=== PATIENT | female | born 1945 | race Caucasian/White ===

== ENCOUNTER 2017-03-20 06:45 | Day surgery (SDC) | payer MEDICARE ==
[~2017-03-20] VITALS: Ht 162.6 cm; Wt 62.5 kg
--- NOTE | 2017-03-20 06:38 | PCM.HPANE ---
Patient Data Surgeon Admitting Provider: Attending Provider:Odell Baez MD Primary Care Physician:Olga Simmons Other Provider:Victor Hugo Burger Anesthesia Reason for Visit Left Scaphoid Fracture Ht/WT & BMI Height (Feet): 5 Height (Inches): 4 Weight (Kilograms): 63 Body Mass Index 23.00 Allergies Coded Allergies: Sulfa (Sulfonamide Antibiotics) (Verified Adverse Reaction, Severe, ITCHING, REDNESS, 03/17/17) Past Anesthesia History Anesthesia History: Denies:: Abnormal Airway, Anesthesia Reactions, Difficult Intubation, Fam Anesthesia Reaction, Fam Malignant Hypertherm, Malignant Hyperthermia Diabetes History Hx Diabetes?: No MRSA MRSA: No Medications Blood Thinner: Aspirin Last Dose Blood Thinner: Mar 14, 2017 Hypertension Medication: Yes (metoprolol) Home Meds Incl Beta Susie: Yes Reported Medications Acetaminophen/Diphenhydramine (Tylenol Pm Ex-Strength Caplet)500 Mg-25 Mg Tablet1 Each PO HS 10/30/15 Cholecalciferol (Vitamin D3) (Vitamin D3)2,000 Unit Tablet2,000-6,000 Unit PO DAILY 10/30/15 Turmeric Root Extract (Turmeric)500 Mg [id number] Mg PO DAILY 10/31/14 Tamoxifen Citrate 20 Mg Ckugzd60 Mg PO DAILY 08/01/14 Atorvastatin Calcium 40 Mg Kjxsdo83 Mg PO DAILY Ref 0 03/30/14 Cyanocobalamin (Vitamin B-12) (Vitamin B-12)1,000 Mcg Tablet.er1,000 Mcg PO DAILY 03/17/14 Nitroglycerin SL 0.4 Mg Tab.subl0.4 Mg SL Q5MIN 03/17/14 Metoprolol Tartrate 25 Mg Bffjdo93 Mg PO BID 30 Days Ref 0 03/17/14 Ibuprofen 400 Mg Tablet1-2 Tab PO TID PRN For Pain Ref 0 03/17/14 Aspirin 81 Mg Tablet.dr81 Mg PO DAILY #1 BOTTLE Ref 0 03/17/14 Amantadine 100 Mg [id number] Mg PO DAILY 03/17/14 Discontinued Reported Medications Ascorbate Calcium (Vitamin C)500 Mg Fzduzc329-1,500 Mg PO DAILY 10/30/15 History History of ENT Problems?: No HEENT History: Denies:: Abnormal Airway Cataracts Difficult Intubation Dysphagia Glaucoma Hearing Problem Sinus Problem TMJ Denture Type: None Teeth Condition: Within Normal Limits Hx of Heart Problems?: No Cardiovascular History: Positive for:: Cardiac Surgery (Heart cath 12/2013 w/ stent to RCA) Chest Pain (DC 12/2013) Coronary Artery Disease Edema (10 years ago left arm (post L mastectomy/radiation)) Hypertension (HYPERLIPIDEMIA) Valvular Heart Disease ( Tricuspid valve regurg) Denies:: AICD Abdominal Aortic Aneurism Atrial Fibrillation Congestive Heart Failure Heart Murmur Irregular Heartbeat (ECHO 06/17/16 EJ=55-60%) Pacemaker Peripheral Vascular Thrombophlebitis Hx of Respiratory Problem?: No Respiratory History: Positive for:: Chest Surgery (heart cath) Denies:: Use of C-PAP Machine Hx Neurologic Problems?: Yes Neurological History: Positive for:: Multiple Sclerosis (2009) Denies:: Alzheimer's Disease CVA Dementia Dizziness Headaches Parkinson's Disease Seizures TIA Hx of GI Problems?: Yes Other GI Pertinent History: Food has a tendency to clog up the esophagus when eating to the point where she is spitting up excessive gastric juices Hx of Problems?: Yes Genitourinary History: Denies:: Kidney Stones Urinary Tract Infection HX of Peritoneal Dialysis: No Female Hx: Positive for:: Problems with Breasts? (HX LT MASTECTOMY FOR CA/RT BX/MASTECTOMY FOR CA ) Denies:: Currently Skin History: Positive for:: History Skin Disorders? Denies:: Pressure Ulcers Hx Musculoskeletal Problems?: Yes Musculoskeletal History: Positive for:: Back Injury (chronic lumbar pain/ RADICULOPATHY, cervical stenosis) Musculoskeletal Trauma (walking tripped fell without streched arm) Osteoarthritis Denies:: Degenerative Joint Fibromyalgia Joint Replacement Myasthenia Gravis Rheumatoid Arthritis Systemic Lupus Hx of Psycho/Social Problems?: No Hx Surgeries?: Yes (hysterectomy, cathlab (stent to RCA), L mastectomy, perferated Peptic ulcer) Hx Any Other Health Problems?: Yes Other History: Positive for:: Cancer (Breast - Lt mastectomy, current Rt breast Ca) Hospitalization (CARDIAC 2013) Denies:: Endocrine Disease (C/OF HEAT INTOLERANCE) Thyroid Disease History Blood Transfusions: Positive for:: Accept Blood Products? Denies:: Blood Transfusions Hx Diabetes: No Hx Alcohol Use: YesAlcoholic Drinks Per Day: one glass on a wine or mixed drink once a weekHx Substance Use: No Smoking Status: Unknown if Ever Smoker Have You Smoked inLast 12 mo: No Stop/Bang S-Snoring: Do You Snore Loudly: No T-Tired: feel tired, fatigued: No O-Obsered: Observed not breath: No P-Blood Pressure: treated: Yes B- Body Mass Index > 35 kg/m2: No A- Age over 50: Yes N- Neck Large Circumference: No G- Gender Male: No JASMINA Total Score: 2 JASMINA Risk Assessment: Low Risk, <3 Yes Risk Assessment Category Category 1A: Patient has history of documented sleep apnea, and HAS NOT received any narcotic, sedative or anesthesia administration during this stay. Category 1B: Patient has history of documented sleep apnea, and HAS received any narcotic , sedative or anesthesia administration during this stay Category 2: Patient has SUSPECTED Obstructive Sleep Apnea, and HAS received any narcotic , sedative or anesthesia administration during this stay. Category 3: Patient has SUSPECTED Obstructive Sleep Apnea and HAS NOT received narcotic, sedative or anesthesia administration during this stay. Category 4: Outpatient in Procedural Areas with known sleep apnea or who screen positive for High Risk via the STOP/BANG questionnaire. Exam Exam General Appearance: Alert, Oriented X3, Cooperative, No Acute Distress HEENT/AIRWAY: MP 2 Lungs: Clear to Auscultation, Normal Air Movement Heart: Exam Unremarkable, Regular Rate/Rhythm, No Murmurs/Rubs/Gallops Plan Impression Patient chart reviewed, patient interviewed and anesthestic plan with risks, benefits, and alternatives discussed, and informed consent obtained. NPO per Anesth. Guidelines: Yes ASA Physical Status: ASA2 Mod Systemic Disease Anesthetic Plan: GA Bene/Risks/Altern/Consents: Yes HP Complete Prior to Induction: Yes Other L ARM lymphedema. not on right. block for post op pain mentioned and discussed as inappropriate considering axillary sourced lymphedema Darian Huntley MD Mar 20, 2017 06:38
[~2017-03-20 06:45] MED LIST: ACET-2605 PO; AMN100C PO; ASCO-294 PO; ASPI-973 PO; ATOR40TA69 PO; CHOL200025 PO; CYAN10009 PO; IBUP400T22 PO; Lactated Ringer's 1,000 ML IV SCH; METO25TA6 PO; NITR0.4T6 SL; TAMO20TA4 PO; TURM500C7 PO
[2017-03-20] MEDS ORDERED: Ondansetron 2 mg/mL 2 mL Inj ONE (06:46)
[2017-03-20] MEDS ORDERED: Propofol 10,000 mCg/mL 20 mL Inj ONE (06:46)
[2017-03-20] MEDS ORDERED: Dexamethasone 4 mg/mL Inj ONE (06:46)
[2017-03-20] MEDS ORDERED: fentaNYL-PF 50 mCg/mL 2 mL Inj ONE (06:46)
[2017-03-20 07:11] VITALS: BP 154/71; PULSE 101; RESP 16; O2SAT 97
[2017-03-20] MEDS: Lactated Ringer's 1,000 ML IV SCH ×2 (07:33→09:10)
[2017-03-20] MEDS ORDERED: CeFAZolin 2 Gm/50 mL D5W Duplex Bag IV ONE (08:35)
[2017-03-20] MEDS ORDERED: CeFAZolin Inj 2 GM in IV Premix 1 EACH IV SCH (08:40)
[2017-03-20] MEDS ORDERED: Bupivacaine-MPF 0.5% 30 mL Inj INFILTRATE ONE (09:56)
[2017-03-20 10:46] VITALS: BP 154/70; PULSE 75; RESP 14; O2SAT 100
[2017-03-20 10:55] VITALS: BP 150/70; PULSE 75; RESP 16; O2SAT 100
[2017-03-20] MEDS ORDERED: oxyCODONE-Acetamin 5-325 mg Tablet PO PRN (11:00)
[2017-03-20 11:05] VITALS: BP 146/75; PULSE 75; RESP 16; O2SAT 99
[2017-03-20 11:41] VITALS: BP 161/75; PULSE 78; RESP 16; O2SAT 88
--- NOTE | 2017-03-20 11:43 | PCM.ANEP1 ---
Post Anesthesia PACU Phase 1 Assessment Vital Signs Vital Signs Date Time Temp Pulse Resp B/P Pulse Ox O2 Delivery O2 Flow Rate FiO2 03/20/17 11:41 36.1 78 16 161/75 88 Room Air 03/20/17 11:05 75 16 146/75 99 Room Air 03/20/17 10:55 75 16 150/70 100 Room Air 03/20/17 10:46 36.5 75 14 154/70 100 Simple Mask 10 03/20/17 07:11 36.3 101 16 154/71 97 Room Air Anesthetic Administered: GA Level of Alertness: Awake, talking TEMPLETON's with Equal Strength: Yes Pain: No Nausea or Vomiting: No CV Function & Hydration Stable: Yes Airway Device: Oxygen Delivery: Simple Mask Lungs: Clear to Auscultation, Normal Air Movement PACU Phase 2 Assessment Complications: No Follow up Care: No Patient Instructions Provided: N/A Darian Huntley MD Mar 20, 2017 11:43
[2017-03-20 11:51] VITALS: BP 161/75; PULSE 81; RESP 16; O2SAT 96
--- NOTE | 2017-03-20 13:52 | DRSVH ---
PROCEDURE: X-RAY LEFT WRIST COMPLETE, MINIMUM THREE VIEWS ([id number]) INDICATIONS: post op ORIF scaphoid TECHNIQUE: 3 views of the wrist were acquired. COMPARISON: [facility], CR, XR WRIST 3VW LT, 02/02/2017, 10:49. [facility] , CR, XR WRIST 3VW LT, 01/13/2017, 12:55. [facility], CR, XR WRIST 3VW LT, 03/18/2017, 10 :21. FINDINGS: Bones: Near anatomic alignment status post ORIF of mid to distal pole scaphoid fracture. Fully threa ded micro screw present traversing the fracture site in expected position. Osteoarthritic changes red emonstrated. Mild osteopenia. Scaphoid view: Not requested. Soft tissues: No suspicious soft tissue calcifications. IMPRESSION: Near-anatomic alignment status post ORIF of mid-distal pole scaphoid fracture. Dictated by: Jm Steele RRA Interpreted: Abby Ward MD on 03/20/2017 at 13:30 Approved by: Abby Ward MD, PhD on 03/20/2017 at 13:49
--- NOTE | 2017-03-21 06:33 | OP ---
[address] [address] OPERATIVE REPORT PATIENT: TRISTAN DUMONT : 1945 MR#: [id number] ADMIT: 03/20/2017 JOB ID: [id number] DATE OF SURGERY: 03/20/2017 PREOPERATIVE DIAGNOSIS(ES): Left scaphoid waist fracture. POSTOPERATIVE DIAGNOSIS(ES): Left scaphoid waist fracture. PROCEDURE: Open reduction and internal fixation, left scaphoid waist fracture (CPT code 47089). SURGEON: Odell Baez MD. ASSISTING: Yanick Rodarte PA-C. Yanick Rodarte PA-C was an interval portion of the procedure, helping for retraction and maintaining reduction. ANESTHESIA: General. ESTIMATED BLOOD LOSS: 2 mL. DRAINS: None. COMPLICATIONS: None. SPONGE AND NEEDLE COUNT: Correct. IMPLANTS UTILIZED: Synthes 2.4 mm cannulated headless compression screw. INDICATIONS: This is a 71-year-old female with history of multiple sclerosis and chronic lymphedema of left upper extremity, with prior history of breast cancer. Fell on January 13, 2017, sustaining a left scaphoid waist fracture. Subsequent x-rays revealed that the fracture was becoming slightly cystic. She did require preoperative medical clearance from which she obtained preoperative medical clearance. We did schedule her for surgery. With all of her multiple medical problems, it was felt that it would be in her best interest to just try and place a cannulated screw along the scaphoid fracture particularly in line with her underlying lymphedema, trying to avoid a larger procedure. The fracture alignment was amenable to cannulated screw fixation. DESCRIPTION OF PROCEDURE: Under appropriate general anesthetic, a well-padded tourniquet was applied to the left upper extremity. Left arm was prepped and draped in a sterile fashion. After appropriate time-out was called, the arm was elevated and exsanguinated, and tourniquet inflated to 250 mmHg. Utilizing a 14-gauge Angiocath, the starting point for the guide pin for the scaphoid was made over a volar aspect. The wrist was hyperextended over some rolled towels and the wrist was placed in some ulnar deviation. The distal pole of the scaphoid was identified. A small incision was fashioned over that area. A small amount of bony prominence along the rim of the trapezium was rongeured. A guide pin was then introduced with a tissue protector into the scaphoid. It did require redirection on one occasion. The guide pin was noted to be in adequate position on AP lateral and oblique and scaphoid views. The guide pin was then subsequently measured, and 4 mm were subtracted from the measurement to allow for compression of the fracture and countersinking of the screw. A 20 mm x 2.4 mm headless compression screw was then placed in the scaphoid and documented to be in good position on AP lateral, oblique and scaphoid views. The fracture was compressed and after it was compressed, screwdrivers were changed and the screw was then countersunk. Once the image intensification confirmed adequate position of the screw in AP lateral and oblique views including scaphoid views, the guide pin was removed, and permanent x-rays were taken with a mini C-arm. The wound was infiltrated with some 0.5% plain Marcaine. Tourniquet released. Minimal hemostasis required. A couple of subcutaneous sutures of 4-0 Monocryl were utilized. Skin was reapproximated with interrupted horizontal mattress sutures of 4-0 nylon. Xeroform dry sterile dressing was applied. The patient was placed in a well-padded short-arm thumb spica cast. She was taken to the recovery room in stable condition. Sponge and needle count correct. PLAN: The patient will be followed in the office in two weeks. At that time her sutures may be removed. She does have lymphedema and her wound healing may be slightly slower. At that time she needs to be placed in a thumb spica cast with no significant radial deviation of the wrist but rather the wrist needs to be in a neutral position. The thumb should also be in a somewhat neutral position where she can oppose the thumb to the index finger. I would suggest that she be placed in a full thumb-spica cast not allowing any motion of the thumb initially. I would like to see the patient back in followup two weeks after that. I anticipate she will require cast immobilization until there is obvious healing of the fracture or marked improvement with the fracture in particular with her lymphedema.
== END 2017-03-20 23:59 | disposition home or self-care (01) ==
LOC: SAS 06:45
PROVIDERS: ATTEND Orthopaedic Surgery
DX: S62.025A Nondisplaced fracture of middle third of navicular [scaphoid] bone of left wrist, initial encounter for closed fracture (principal); R26.81 Unsteadiness on feet; I10 Essential (primary) hypertension; I25.10 Atherosclerotic heart disease of native coronary artery without angina pectoris; E78.00 Pure hypercholesterolemia, unspecified; G35 Multiple sclerosis; M81.0 Age-related osteoporosis without current pathological fracture; M54.16 Radiculopathy, lumbar region; I25.2 Old myocardial infarction; W18.09XA Striking against other object with subsequent fall, initial encounter; Y93.9 Activity, unspecified; Y92.9 Unspecified place or not applicable; Y99.8 Other external cause status; Z79.82 Long term (current) use of aspirin; Z90.710 Acquired absence of both cervix and uterus; Z85.828 Personal history of other malignant neoplasm of skin; Z85.3 Personal history of malignant neoplasm of breast; Z91.81 History of falling; Z95.5 Presence of coronary angioplasty implant and graft
CPT/HCPCS: 25628; 73110; C1713; J0690; J1100; J2250; J2405; J2704; J3010; J7120

== ENCOUNTER 2017-05-08 14:44 | Inpatient (IN) | payer MEDICARE ==
[~2017-05-08] VITALS: Ht 162.6 cm; Wt 61.6 kg
[2017-05-08] VITALS (7 sets, daily range): BP systolic 86–125; BP diastolic 45–74; PULSE 84–118; RESP 18–20; O2SAT 96–98
[~2017-05-08 14:44] MED LIST changes: -ASCO-294 PO; -Lactated Ringer's 1,000 ML IV SCH; +NITR0.4T38 SL; -NITR0.4T6 SL
--- NOTE | 2017-05-08 15:02 | ED.REPORT ---
HPI-General Illness Date of Service May 08, 2017 ED Provider: Dr. Waller The pt is a 71 y/o female with a hx of peptic ulcer disease, [place] (on 81mg Aspirin ), multiple sclerosis, HTN, and hyperlipidemia who presents to the ED via EMS complaining of non-radiating, gradually worsening abdominal pain, onset 2 weeks ago. She describes it as a moderate aching swain that is not relieved by any specific factors. It was exacerbated after a cup of coffee. Today, she became lightheaded and nauseous. Her caregiver lowered her to the ground. She did not hit her head and did not lose consciousness. Shortly thereafter, the pt had multiple episodes of coffee ground emesis and was brought to the ED. She also noted some hematochezia 2 days ago but nothing since; although she reports slightly darker stool since. She denies chest pain, shortness of breath, fever, chills, headache,vision changes, constipation, and diarrhea. Nursing Notes Stated Complaint: ABDOMINAL PAIN Chief Complaint: General Complaint Nursing Notes Reviewed: Yes Allergies: Coded Allergies: Sulfa (Sulfonamide Antibiotics) (Verified Adverse Reaction, Severe, ITCHING, REDNESS, 03/17/17) Scheduled Acetaminophen/Diphenhydramine (Tylenol Pm Ex-Strength Caplet) 500 Mg-25 Mg Tablet 1 EACH PO HS Amantadine (Amantadine) 100 Mg Cap 100 MG PO DAILY Ascorbate Calcium (Vitamin C) 500 Mg Tablet 1,500 MG PO DAILY Aspirin (Aspirin) 81 Mg Tablet.dr 81 MG PO DAILY Atorvastatin Calcium (Atorvastatin Calcium) 40 Mg Tablet 40 MG PO DAILY Cholecalciferol (Vitamin D3) (Vitamin D3) 2,000 Unit Tablet 6,000 UNIT PO DAILY Cyanocobalamin (Vitamin B-12) (Vitamin B-12) 1,000 Mcg Tablet 1,000 MCG PO DAILY Metoprolol Tartrate (Metoprolol Tartrate) 25 Mg Tablet 25 MG PO BID Tamoxifen Citrate (Tamoxifen Citrate) 20 Mg Tablet 20 MG PO DAILY Turmeric Root Extract (Turmeric) 500 Mg Capsule 500 MG PO DAILY Scheduled PRN Docusate Calcium (Stool Softener) 240 Mg Capsule 240 MG PO BID PRN PRN For Constipation Ibuprofen (Ibuprofen) 400 Mg Tablet 2 TAB PO BID PRN PRN For Pain Nitroglycerin SL (Nitroglycerin SL) 0.4 Mg Tab.subl 0.4 MG SL Q5MIN PRN PRN For Chest Pain General Time Seen by MD: 15:05 Chief Complaint Abdominal pain Hx Obtained From: Patient Arrived By: Ambulance Sudden in Onset?: Yes Onset Occurred: 2 days ago Symptom Duration: Since onset Location: : Abdomen Quality: Aching Radiation: : Does not radiate Severity: Current: Moderate Severity: Maximum: Moderate Recent Healthcare: No recent doctor visit Past Medical History Past Medical History Notes: 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 Rojas Past Medical History MS Lymphedema Acute perforated peptic ulcer with peritonitis in 1996. Myocardial Infarction Reports: Cancer, Hyperlipidemia, Hypertension Past Surgical History Mastectomy Reports: Hysterectomy Smoking History Unknown if Ever Smoker Social History Alcohol Use: 1-3 per week Drug Use: Denies drug use Ambulatory Status Independent Review of Systems Reports: slightly dark stool Full Review of Systems Constitutional: Denies: Chills, Fever Eyes: Denies: Blurred bilateral Ears / Nose / Throat: Denies: Sore throat Respiratory: Denies: Shortness of breath Cardiovascular: Denies: Chest pain GI: Reports: Abdominal pain, Hematemesis, Hematochezia (resolved), Nausea, Vomiting, Denies: Constipation, Diarrhea Female: Denies: Hematuria Musculoskeletal: Denies: Back pain Hematologic: Denies Bruising Endocrine: Denies: Polyuria Skin: Denies Rash Allergy / Immune: Denies: Itching Neurologic: Denies: Change LOC, Headache, Lightheaded, Vision change Psychiatric: Denies: Change mental status Complete sys rev & neg: except as marked. Physical Exam Nursing note and vitals reviewed. Constitutional: Pale, elderly female sitting up in bed. Not diaphoretic. Head: Normocephalic and atraumatic. Mouth/Throat: Oropharynx is clear and moist. No oropharyngeal exudate. Eyes: EOM are normal. Pupils are equal, round, and reactive to light. Neck: Supple, no tracheal deviation. Cardiovascular: Tachycardic, regular rhythm. Equal and intact distal pulses throughout. Pulmonary/Chest: Effort normal and breath sounds normal. No respiratory distress. Abdominal: Soft. No distension. There is mild abdominal tenderness diffusely without rebound and guarding. Bowel sounds present. Musculoskeletal: Range of motion grossly intact, moving all extremities. No edema or tenderness appreciated. Neurological: AOx3. Grossly nonfocal exam. Strength and sensation intact and equal to bilateral upper and lower extremities. Skin: Warm and dry, though appears pale. Psychiatric: Appropriate mood and affect. Behavior appears normal. Rectal: Hemoccult positive, no gross blood Vital Signs Vital Signs Date Time Temp Pulse Resp B/P Pulse Ox O2 Delivery O2 Flow Rate FiO2 05/08/17 16:36 105 119/52 98 Room Air 05/08/17 15:10 101 18 86/45 96 Room Air 05/08/17 14:51 36.8 118 18 111/66 96 Room Air Initial VS: Reviewed Interpretation & Diagnostics Lab Results Interpretation Result Diagram: 05/09/17 0039 05/08/17 1500 Test 05/08/17 15:00 05/08/17 17:57 White Blood Count 7.8th/mm3 (3.8-10.1) Red Blood Count 2.86mil/mm3 (3.90-5.20) Mean Corpuscular Volume 95.5fL (81-100) Mean Corpuscular Hemoglobin 30.8pg (27.0-35.0) Mean Corpuscular Hemoglobin Concent 32.2% (32.0-37.0) Red Cell Distribution Width 14.2% (12.3-15.4) Platelet Count 229bil/L (150-400) Neutrophils (%) (Auto) 73.0% (40-74) Lymphocytes (%) (Auto) 17.5% (14-46) Monocytes (%) (Auto) 6.9% (4-12) Eosinophils (%) (Auto) 1.9% (0-5) Basophils (%) (Auto) 0.4% (0-3) Prothrombin Time 10.3sec (8.1-12.5) Prothromb Time International Ratio 0.96ratio Sodium Level 145mEq/L (134-144) Potassium Level 3.8mEq/L (3.5-5.2) Chloride Level 110mEq/L (97-108) Carbon Dioxide Level 23mmol/L (18-29) Blood Urea Nitrogen 24mg/dL (8-27) Creatinine 0.60mg/dL (0.57-1.00) Estimat Glomerular Filtration Rate 141mL/min (>59) Glucose Level 126mg/dL (60-99) Calcium Level 9.3mg/dL (8.5-10.1) Magnesium Level 1.5mg/dL (1.6-2.6) Total Bilirubin 0.2mg/dL (0.0-1.2) Aspartate Amino Transf (AST/SGOT) 13U/L (0-50) Alanine Aminotransferase (ALT/SGPT) 9U/L (0-32) Alkaline Phosphatase 45U/L (25-165) Troponin T < 0.010ug/L (0.0-0.011) Total Protein 4.5g/dL (6.4-8.4) Albumin 2.6g/dL (3.4-5.0) Hold Leos Top Tube Received (Received) Urine Color Yellow (YELLOW) Urine Appearance Cloudy (CLEAR,HAZY) Urine pH 7.5 (5.0-8.0) Urine Specific [place] 1.010 (1.003-1.035) Urine Protein Negativemg/dL (NEG,TRACE) Urine Glucose (UA) Negativemg/dL (NEGATIVE) Urine Ketones Negativemg/dL (NEGATIVE) Urine Occult Blood Trace (NEGATIVE) Urine Nitrite Negative (NEGATIVE) Urine Bilirubin Negative (NEGATIVE) Urine Urobilinogen Normalmg/dL (NORMAL) Urine Leukocyte Esterase Trace (NEGATIVE) Urine RBC 0-2/hpf (0-2) Urine WBC 6-10/hpf (0-5) Urine Epithelial Cells Many/hpf (NONE-MOD) Urine Crystals Amorphous phosphates Urine Bacteria Moderate/hpf (NONE-FEW) Urine Hyaline Casts None/lpf (NONE) Urine Granular Casts None seen (NONE SEEN) Urine Waxy Casts None seen (NONE SEEN) Urine Red Blood Cell Casts None seen (NONE SEEN) Urine White Blood Cell Casts None seen (NONE SEEN) Urine Mucus None seen (None Seen) Urine Trichomonas None seen (NONE SEEN) Urine Yeast None (NONE SEEN) Urinalysis Comment None Urine Culture Reflexed Indicated ECG Interpretation ECG Interpretation: Normal sinus rhythm. Rate 99. T waves now flattened in V5 - V6 as compared with previous ECG on 03/12/17 Time: 15:42 Interpreted by: ED physician X-Ray Chest Interpretation Chest Xray Interpretation: IMPRESSION: No acute cardiopulmonary disease. Dictated by: Laura Zungia M.D. on 05/08/2017 at 15:19 Approved by: Laura Zuniga M.D. on 05/08/2017 at 15:20 View: Portable, 1 view Interpretation / Wet Read by: Interpret - Radiologist CT Abd / Pelvis Interpretation IMPRESSION: 1. Circumferential wall thickening involving the gastric antrum with mild irregularity and adjacent inflammation involving the first portion of the duodenum. Findings may represent an inflammatory process related to a duodenal ulcer, however neoplastic process cannot be excluded by CT imaging. Recommend endoscopy for further evaluation. 2. Severe fecal loading involving the right and transverse colon with moderate fecal loading involving the left and sigmoid colon. 3. Multiple pancreatic cystic lesions as described above. Cystic lesions may be related to intraductal papillary mucinous neoplasms (IPMN), however lesions are nonspecific and other etiologies including serous cystadenoma could produce similar appearance. Recommend dedicated CT scan or MRI scan of the pancreas in 3 months. 4. No free fluid or air. 5. Findings and recommendations telephoned to Dr. Juventino Waller on 05/08/2007 at 1721 hrs. Dictated by: Abby Ward MD, PhD on 05/08/2017 at 16:02 Approved by: Abby Ward MD, PhD on 05/08/2017 at 16:23 Study type: Abdominal CT IV contrast Interpretation / Wet Read by: Interpret - Radiologist Re-Eval/Medical Decision Med Decision/Clinical Course In summary, 71-year-old female presenting to the ED for evaluation of lightheadedness and near syncope earlier today followed by hematemesis. Differential includes perforated ulcer, esophageal varices, neoplastic process, esophageal rupture, diverticulosis, etc. Upon arrival to the ED, patient hypotensive and tachycardic with a blood pressure of 70s over 30s and heart rate in the 130s to 140s. No known history of cirrhosis. Patient has been taking approximately 1200 mg of ibuprofen every morning. Patient started on IV fluids, type and screen obtained. After fluid resuscitation, patient did have an improvement in her hemodynamics with a heart rate down to the low 100s and blood pressure of 120s over 50s. Initial laboratory studies here in the ED notable for a hemoglobin of 8.8 from 13.6 one month ago, platelets normal, INR of 0.96, troponin negative. Urinalysis with trace leukocyte esterase and 6-10 white blood cells with bacteria, however many epithelial cells - patient is not having any dysuria and suspected this may be contaminated. CT scan demonstrates findings in the gastric antrum and proximal duodenum consistent with ulcer versus neoplastic process, as well as multiple pancreatic cysts that will need further workup. Patient given Protonix here in the ED. No need for ceftriaxone at this time. Considered transfusion, however patient has stopped having hematemesis and is not having any active bleeding at this time; given the improvement in her hemodynamics, it seems reasonable to hold off for now. Gastroenterology consulted; appreciate their assistance. Plan admission for further management and evaluation, likely endoscopy later this evening or tomorrow. Discussed imaging findings and laboratory studies with the patient; she is agreeable to the plan is stated, no further questions. Source of Hx: Old records Time of Eval: 15:20 Re-Evaluation/Progress Note: Discussed lab results, imaging results, plan to do a CT, and a possibility of blood transfusion. Discussed the risks of blood transfusion and plan to admit. She understands and agrees with the plan. All questions answered. Consultation #1: Referral / Consult Name: Jean Mulligan MD Call Returned at: 17:55 Managing Editor: Will see patient, Agrees with eval, Agrees with plan, Accepts admit Note: Dr. Mulligan agrees with the plan. He will do an endoscopy either tonight or tomorrow morning. Consultation #2: Referral / Consult Name: Josef Saldivar MD Consulted With: Hospitalist Call Returned at: 19:18 Managing Editor: Will see patient, Agrees with eval, Agrees with plan, Accepts admit Counseled Regarding: Diagnosis, Lab results, Need for admission Discharge & Departure Primary Impression: GI bleed GI bleed type/associated pathology: unspecified gastrointestinal hemorrhage type Qualified Code: K92.2 - Gastrointestinal hemorrhage, unspecified Additional Impressions: Hypotension Hypotension type: unspecified hypotension type Qualified Code: I95.9 - Hypotension, unspecified Acute blood loss anemia Tachycardia Disposition: ADMITTED TO HOSPITAL Referrals: Olga Simmons (PCP) Crit Care Except Billable Proc Time Spent: 30-74 minutes Services Performed: Patient management by me, Time spent at bedside, Reviewing test results, Reviewing imaging, Discussing patient care, Documentation in record Critical Care Notes: Please see MDM. 40 minutes of critical care time were spent in the management of this patient. Scribe Attestation Portions of this note were transcribed by Drea Kang. I,, personally performed the history,physical exam and medical decision-making;I reviewed and confirmed the accuracy of the information in the transcribed note. Signed by Negra Martinez. 05/08/17 copies to: Olga Simmons William B MD May 08, 2017 15:02 Drea Kang May 08, 2017 15:22
[2017-05-08] MEDS ORDERED: 0.9% Sodium Chloride 1,000 ML IV ONE (15:04)
[2017-05-08 15:08] LABS: BASOPHILS % (AUTO) 0.4 % (0-3); EOSINOPHILS % (AUTO) 1.9 % (0-5); MONOCYTES % (AUTO) 6.9 % (4-12); Mean Corpuscular Hemoglobin 30.8 pg (27.0-35.0); Mean Corpuscular Volume 95.5 fL (81-100); Platelet Count 229 bil/L (150-400)
--- NOTE | 2017-05-08 15:22 | DRSVH ---
PROCEDURE: X-RAY CHEST ONE VIEW, PORTABLE ([id number]) INDICATIONS: hypotension, abdominal pain TECHNIQUE: One view of the chest was acquired. COMPARISON: [facility], , CHEST 1VW (PORTABLE), 10/27/2014, 11:00. FINDINGS: Surgical changes and devices: There is a left mastectomy. Surgical clips in the right breast and left axilla.. Lungs and pleura: No pleural effusions or pneumothorax. Lungs are clear. Mediastinum: Mediastinal contours appear normal. Heart size is normal. Bones and chest wall: No suspicious bony lesions. Overlying soft tissues appear unremarkable. IMPRESSION: No acute cardiopulmonary disease. Dictated by: Laura Zuniga M.D. on 05/08/2017 at 15:19 Approved by: Laura Zuniga M.D. on 05/08/2017 at 15:20
[2017-05-08 15:23] LABS: INR 0.96 ratio
[2017-05-08 15:32] LABS: TROPONIN T < 0.010 ug/L (0.0-0.011)
[2017-05-08 15:41] LABS: Magnesium 1.5 mg/dL (1.6-2.6)
[2017-05-08] MEDS ORDERED: Pantoprazole 4 mg/mL 10 mL Inj IVPUSH ONE (16:20)
[2017-05-08] MEDS ORDERED: Octreotide Inj 500 MCG in 0.9% Sodium Chloride 100 ML IV ONE (16:55)
[2017-05-08] MEDS ORDERED: Pantoprazole Inj 80 MG, Pharmacy To Mix 1 EA in 0.9% Sodium Chloride 80 ML IV ONE ×2 (16:55)
--- NOTE | 2017-05-08 17:24 | DRSVH ---
PROCEDURE: CT ABDOMEN AND PELVIS WITH CONTRAST ([id number]) INDICATIONS: abd pain, coffee ground emesis TECHNIQUE: After the administration of intravenous contrast, 5 mm thick sections acquired from the diaphragm to the symphysis. 5 mm coronal and sagittal reformats were acquired. For radiation dose reduction, the following was used: automated exposure control, adjustment of mA and/or kV according to patient siz e. COMPARISON: None. FINDINGS: Image quality: Excellent. ABDOMEN: Lung bases: Lung bases are clear. Heart size is normal. Solid organs: Liver and spleen are normal in size and enhancement. Gallbladder is within normal chan its. Biliary system is non dilated. Pancreas enhances normally. Small, approximately 0.9 x 1.2 x 1. 3 cm hypoattenuating lesion noted in the head of the pancreas. Two small, approximately [address] hypoattenuating lesions noted in the posterior margin of the body of the pancreas. No adrenal no dules. Kidneys demonstrate normal size and enhancement, without hydronephrosis. Peritoneum and bowel: Circumferential wall thickening is noted in the gastric antrum. The stomach is moderately distended proximal to the circumferential wall thickening involving the gastric antrum. Th e first portion of the duodenum is slightly irregular and there are mild inflammatory changes adjacen t to the proximal duodenum. No free fluid in the fat in the lesser sac or adjacent to the duodenum. L arge amount of stool is noted in the right and transverse colon. Moderate amount of stool noted in th e left colon and sigmoid colon. No free fluid or air. Nodes and vessels: No retroperitoneal or mesenteric adenopathy by size criteria. Aorta and inferior vena cava are normal in size. Scattered atherosclerotic calcifications noted in the abdominal and pe lvic vasculature. Miscellaneous: No ventral hernias. PELVIS: Genitourinary: Bladder wall thickness is normal. Miscellaneous: No inguinal hernias or adenopathy. Bones: No suspicious bony lesions. No vertebral body compression fractures. Spine degenerative disc disease and facet arthropathy. IMPRESSION: 1. Circumferential wall thickening involving the gastric antrum with mild irregularity and adjacent i nflammation involving the first portion of the duodenum. Findings may represent an inflammatory proce ss related to a duodenal ulcer, however neoplastic process cannot be excluded by CT imaging. Recommen d endoscopy for further evaluation. 2. Severe fecal loading involving the right and transverse colon with moderate fecal loading involvin g the left and sigmoid colon. 3. Multiple pancreatic cystic lesions as described above. Cystic lesions may be related to intraducta l papillary mucinous neoplasms (IPMN), however lesions are nonspecific and other etiologies including serous cystadenoma could produce similar appearance. Recommend dedicated CT scan or MRI scan of the pancreas in 3 months. 4. No free fluid or air. 5. Findings and recommendations telephoned to Dr. Juventino Waller on 05/08/2007 at 1721 hrs. Dictated by: Abby Ward MD, PhD on 05/08/2017 at 16:02 Approved by: Abby Ward MD, PhD on 05/08/2017 at 16:23
[2017-05-08 18:29] LABS: APPEARANCE,URINE CLOUDY (CLEAR,HAZY); COLOR,URINE YELLOW (YELLOW); PH,URINE 7.5 (5.0-8.0)
[2017-05-08 18:30] LABS: OCCULT BLOOD,URINE TRACE (NEGATIVE); UROBILINOGEN,URINE NORMAL (NORMAL)
--- NOTE | 2017-05-08 19:15 | CONS ---
[address] [address] CONSULTATION REPORT PATIENT: TRISTAN DUMONT : 1945 MR#: [id number] ADMIT: 05/08/2017 JOB ID: [id number] DATE OF SERVICE: 05/08/2017 REASON FOR CONSULTATION: Coffee-ground emesis. HISTORY OF PRESENT ILLNESS: This is a pleasant 71-year-old female with history of peptic ulcer disease, perforation in 1996 and underwent surgery with a patch, multiple sclerosis, lymphedema, myocardial infarction with stent placement, hyperlipidemia, hypertension, hysterectomy, and mastectomy, who presents here for coffee-grounds emesis x1 day. The patient does have a history of ibuprofen use in which she takes 2 g of ibuprofen per day for the past 5-6 months. The patient describes one day of coffee-grounds emesis or vomiting blood. The patient also stated that she had gradual abdominal pain that worsened during the past two weeks. The patient never had an EGD or a colonoscopy in the past. Denies family history of colon cancer, IBD, or celiac disease. The patient denies rectal bleeding, change in bowel habits, or unintentional weight loss. PAST MEDICAL HISTORY: As stated above. PAST SURGERIES: As stated above. MEDICATIONS AT HOME: Tylenol, amantadine, aspirin, atorvastatin, vitamin D3, vitamin B12, metoprolol, ibuprofen, nitroglycerin, tamoxifen, tumeric. ALLERGY: Sulfa. SOCIAL HISTORY: Unknown if ever smoked. Drinks alcohol socially. No IV drug use. FAMILY HISTORY: Negative for IBD, colon cancer, or celiac disease. REVIEW OF SYSTEMS: The patient denies headache, blurred vision. Positive for nausea, vomiting. No chest pain or shortness of breath. Positive abdominal pain. No skin rash or joint pain. PHYSICAL EXAMINATION: Vital signs upon presentation: Temperature is 36.8, pulse 105, blood pressure 119/52, sat 98% room air. General: No acute distress. HEENT: No scars. Eyes: Anicteric. Throat: Supple. Lungs: Clear to auscultation bilaterally. Cardiovascular: Regular rhythm and rate. Abdomen: Soft, nondistended, nontender. Normal bowel sounds. Extremities: No cyanosis, clubbing, or edema. LABORATORIES: Show a white blood cell count 7.8, hemoglobin 8.8, hematocrit 27, platelet count of 229. Sodium 145, potassium 3.8, chloride 110, bicarb 22, BUN 24, creatinine 0.6, glucose 126, calcium 9.3, magnesium 1.5. Total bili 0.2, AST 13, ALT 9, alk phos 45. Troponin is negative. Total protein 4.5, albumin 2.6. PT 10.3, INR 0.96. IMAGING: CT of the abdomen and pelvis performed May 08, 2015 with contrast shows circumferential wall thickening of the gastric antrum with mild irregularity along with adjacent inflammation of the 1st portion of the duodenum, severe fecal loading of the right and transverse colon, moderate fecal loading of left and sigmoid colon. Multiple pancreatic cystic lesions that were seen may be related to IPMN, which measures approximately 0.9 x 1.2 x 1.3 cm in the head of the pancreas, along with two small lesions approximately 7 mm in the posterior margin of the body of the pancreas. No free air was seen. ASSESSMENT AND PLAN: This is a 71-year-old, female with a history of multiple sclerosis, status post peptic ulcer disease with acute peritonitis in 1996 who underwent exploratory laparotomy with patch placement, lymphedema, myocardial infarction with stent placement, hyperlipidemia, hypertension, pancreatic cyst, who presents here for coffee-grounds emesis. I agree at this point in time with n.p.o., IV fluids, and Protonix drip. RECOMMENDATIONS: 1. Continue n.p.o. except for medications. IV fluids and Protonix drip. 2. EGD to be performed tomorrow morning.
[2017-05-08] MEDS ORDERED: DOCU240C41 PO (19:34)
[2017-05-08] MEDS ORDERED: CYAN10008 PO (19:34)
[2017-05-08] MEDS ORDERED: ASCO-294 PO (19:34)
[2017-05-08] MEDS ORDERED: Ondansetron 2 mg/mL 2 mL Inj IVPUSH PRN (19:45)
[2017-05-08] MEDS ORDERED: Alum-Mag Hydrox-Simeth 30 mL Suspension PO PRN (19:45)
[2017-05-08] MEDS ORDERED: Polyethylene Glycol (PEG) 17 Gm Powder PO PRN (19:45)
--- NOTE | 2017-05-08 21:11 | PCM.HPMED ---
Subjective Date of Service May 08, 2017 Primary Provider: Admitting Physician: Primary Care Physician: Olga Simmons Attending Physician: Chief Complaint: Hematochezia History of Present Illness: Patient is a 71 y/o female with PMHx of PUD with perforation and associated peritonitis roughly 20 years ago, multiple sclerosis, and hypertension who presented after two episodes of bloody emesis. Patient reports that she was walking to the bathroom at around 14:15 today and felt her legs give out from under her. She was lowered to the ground and became nauseous and proceeded to have dark red, coffee colored emesis. EMS was called and she had another coffee ground emesis before they took her to the hospital. She denies any lightheadedness, LOC, diarrhea, urinary symptoms, CP, or SOB. Patient reports that she has been having achey lower abdominal pain for the past two weeks and has been using OTC Ibuprofen daily to control this pain. She states that she takes 6 200mg tablets in the morning and then 4 200mg tablets in the afternoon everyday to control the pain. She states that sitting makes the pain worse, and standing relieves the pain. Her symptoms are not affected by food/diet. She also reports to have some constipation and "darker" stools recently. She states that she has started a Weight Watcher program in the past few months, as well as being under an increased stress amount from her 's recent health problems. He is currently recovering from a CVA and being treated at [facility]. She attributes a 14lb weight loss in the past month and a half. In the ED patient was found to be hypotensive and anemic with a Hbg 8.8. Patient was given 1L NS and placed on octreotide and protonix. GI was consulted in the ED. Review of Systems: ROS negative unless otherwise noted above. Allergies Coded Allergies: Sulfa (Sulfonamide Antibiotics) (Verified Adverse Reaction, Severe, ITCHING, REDNESS, 03/17/17) Home Medications Acetaminophen/Diphenhydramine (Tylenol Pm Ex-Strength Caplet) 500 Mg-25 Mg Tablet 1 EACH PO HS Amantadine (Amantadine) 100 Mg Cap 100 MG PO DAILY Aspirin (Aspirin) 81 Mg Tablet.dr 81 MG PO DAILY Atorvastatin Calcium (Atorvastatin Calcium) 40 Mg Tablet 40 MG PO DAILY Cholecalciferol (Vitamin D3) (Vitamin D3) 2,000 Unit Tablet 2,000-6,000 UNIT PO DAILY Cyanocobalamin (Vitamin B-12) (Vitamin B-12) 1,000 Mcg Tablet.er 1,000 MCG PO DAILY Metoprolol Tartrate (Metoprolol Tartrate) 25 Mg Tablet 25 MG PO BID Nitroglycerin SL (Nitroglycerin SL) 0.4 Mg Tab.subl 0.4 MG SL Q5MIN Tamoxifen Citrate (Tamoxifen Citrate) 20 Mg Tablet 20 MG PO DAILY Turmeric Root Extract (Turmeric) 500 Mg Capsule 500 MG PO DAILY PMH Peptic Ulcer Disease Multiple Sclerosis HTN Hyperlipidemia RI Lymphedema Breast Cancer Surgical History Mastectomy Hysterectomy Family History Mother: HTN Father: CAD Brother: Colon Cancer Social History Hx Alcohol Use: Yes Hx Substance Use: No Smoking Status: Never Smoker Living Arrangement: with Family Exam Vital Signs Vital Sign - Last Date Time Temp Pulse Resp B/P Pulse Ox O2 Delivery O2 Flow Rate FiO2 05/08/17 16:36 105 119/52 98 Room Air 05/08/17 15:10 18 05/08/17 14:51 36.8 Exam Constitutional: Awake, alert and oriented x4, no acute distress Head: normocephalic and atraumatic Eyes: pupils equal round and reactive to light, pale conjunctiva Mouth: No blood in the oral cavity, no posterior oropharynx erythema, moist mucous membranes Heart: tachycardic, regular rhythm, no murmurs, rubs, or gallops, no peripheral edema Lungs: clear to auscultation bilaterally, no wheeze, rales, or rhonchi ABD: soft, nontender, bowel sounds present throughout. Old ex lap surgical scar noted. Musculoskeletal: moves all four extremities appropriately. Skin: warm, dry, pale Neuro: CN II-XII intact. no focal deficits. Psych: appropriate mood and affect. Lab and Diagnostics Labs Item Value Date Time Red Blood Count 2.86 mil/mm3 L 05/08/17 1500 Mean Corpuscular Volume 95.5 fL 05/08/17 1500 Mean Corpuscular Hemoglobin 30.8 pg 05/08/17 1500 Mean Corpuscular Hemoglobin Concent 32.2 % 05/08/17 1500 Red Cell Distribution Width 14.2 % 05/08/17 1500 Neutrophils (%) (Auto) 73.0 % 05/08/17 1500 Lymphocytes (%) (Auto) 17.5 % 05/08/17 1500 Monocytes (%) (Auto) 6.9 % 05/08/17 1500 Eosinophils (%) (Auto) 1.9 % 05/08/17 1500 Basophils (%) (Auto) 0.4 % 05/08/17 1500 Estimat Glomerular Filtration Rate 141 mL/min 05/08/17 1500 Calcium Level 9.3 mg/dL 05/08/17 1500 Magnesium Level 1.5 mg/dL L 05/08/17 1500 Total Bilirubin 0.2 mg/dL 05/08/17 1500 Aspartate Amino Transf (AST/SGOT) 13 U/L 05/08/17 1500 Alanine Aminotransferase (ALT/SGPT) 9 U/L 05/08/17 1500 Alkaline Phosphatase 45 U/L 05/08/17 1500 Troponin T < 0.010 ug/L 05/08/17 1500 Total Protein 4.5 g/dL L 05/08/17 1500 Albumin 2.6 g/dL L 05/08/17 1500 Prothrombin Time 10.3 sec 05/08/17 1500 Prothromb Time International Ratio 0.96 ratio 05/08/17 1500 Result Diagram: 05/08/17 1500 05/08/17 1500 Microbiology Urine Culture Pending X-Rays, CTs and MRIs PROCEDURE: X-RAY CHEST ONE VIEW, PORTABLE IMPRESSION: No acute cardiopulmonary disease. Dictated by: Laura Zuniga M.D. on 05/08/2017 at 15:19 PROCEDURE: CT ABDOMEN AND PELVIS WITH CONTRAST IMPRESSION: 1. Circumferential wall thickening involving the gastric antrum with mild irregularity and adjacent inflammation involving the first portion of the duodenum. Findings may represent an inflammatory process related to a duodenal ulcer, however neoplastic process cannot be excluded by CT imaging. Recommend endoscopy for further evaluation. 2. Severe fecal loading involving the right and transverse colon with moderate fecal loading involving the left and sigmoid colon. 3. Multiple pancreatic cystic lesions as described above. Cystic lesions may be related to intraductal papillary mucinous neoplasms (IPMN), however lesions are nonspecific and other etiologies including serous cystadenoma could produce similar appearance. Recommend dedicated CT scan or MRI scan of the pancreas in 3 months. 4. No free fluid or air. 5. Findings and recommendations telephoned to Dr. Juventino Waller on 2006 at 1721 hrs. Dictated by: Abby Ward MD, PhD on 05/08/2017 at 16:02 12-lead ECG Sinus Rhythm HR 99 Assessment & Plan Patient is a 71 y/o female with PMHx of PUD with perforation and associated peritonitis roughly 20 years ago, multiple sclerosis, and hypertension who presented after two episodes of bloody emesis. - Acute Hematemesis secondary to Upper GI Bleed, POA, Active, Stable - Patient with h/o PUD and perforated ulcer 20 years ago presents after two weeks of ABD pain and 2 episodes of hematemesis - Blair-Blatchford Bleeding Score 13, patient meets requirements for inpatient management and further diagnostics. - With recent increase in Ibuprofen use, this is a likely cause for bleed, although CT imaging does not rule out cancer - NPO - GI consulted, plan for endoscopy in the AM - Patient received Octreotide and Protonix in the ED, place patient on Protonix drip at 8mg/hr - IVF - Avoid NSAID and antiplatelet medications - Acute Hypotension, POA, Active, Stable - Patient 86/45 in the ED, likely from acute blood loss from hematemesis - Monitor BP - IVF at a rate of 100ml/hr, patient does not have a h/o congestive heart failure - Acute Normocytic Anemia, POA, Active, Stable - Patient had a Hbg of 8.8 on admission, likely from acute blood loss - Monitor H/H with AM CBC - IVF supportive therapy as above. - Acute Hypernatremia, POA, Active, Stable - Patient Sodium 145 on admission, likely contraction from emesis and fluid loss. Patient asymptomatic - AM CMP - IVF supportive therapy as above - HTN, Chronic, Stable - Continue home dose of Metoprolol, hold if hypotensive - Hyperlipidemia, Chronic, Stable - Continue home dose statin - Multiple Sclerosis, Chronic, Stable - Patient w/ 40y h/o MS - Continue Amantidine home dose Patient DNR/DNI Pain Evaluation: Adequate Pain Control GI Prophylaxis: Proton Pump Inhibitor VTE Prophylaxis Indicated: Contraindicated VTE Prophylaxis: SCDs VTE Mechanical Devices: Intermittant Pneumatic CD Resuscitation Status: DNR/DNI:Do Not Resuscitate/Intubate Attending Statement The patient was seen and examined together with Dr. Cody on 05/08 and I agree with the history, exam and plan as outlined in the note above. Arik Cody DO May 08, 2017 19:52 Josef Saldivar MD May 08, 2017 22:27 The patient was seen and examined together with Dr. Cody on 05/08 and I agree with the history, exam and plan as outlined in the note above. Arik Cody DO May 08, 2017 19:52 Josef Saldivar MD May 08, 2017 22:27
[2017-05-08] MEDS: 0.9% Sodium Chloride 1,000 ML IV SCH (21:20)
--- NOTE | 2017-05-08 23:38 | NUR ---
Admit Pt arrived to [facility] RM 2005 at 2030. Denies pain, HR SR 80s, BP stable. Able to stand and transfer from rney to bed without dizziness. Protonix and octreotide drips infusing. NS @100ml/hr. Plan for Endo at 0700 05/09.
[2017-05-09] VITALS (12 sets, daily range): BP systolic 104–135; BP diastolic 44–74; PULSE 78–95; RESP 16–20; O2SAT 96–99
[2017-05-09] MEDS: Pantoprazole Inj 80 MG in 0.9% Sodium Chloride 80 ML IV SCH ×2 (03:48→15:33)
[2017-05-09 05:23] LABS: Mean Corpuscular Hemoglobin 30.6 pg (27.0-35.0); Mean Corpuscular Volume 96.4 fL (81-100)
--- NOTE | 2017-05-09 06:06 | NUR ---
GI Bleed/H&H H&H trending down, last check 7.6 and 23.9. Patient has not had any more episodes of nausea or vomiting, no stools yet. Up to BS to void. RA, denies pain. Next H&H at 0700, Endo to take patient down at 0700 as well. Protonix drip infusing.
[2017-05-09] MEDS: 0.9% Sodium Chloride 1,000 ML IV SCH (06:40)
--- NOTE | 2017-05-09 07:35 | NUR ---
Off unit to Endo: Rec'd report from ERROL RN. Patient currently off unit at Endo.
[2017-05-09] MEDS ORDERED: Lactated Ringer's 1,000 ML IV ONE (07:36)
--- NOTE | 2017-05-09 07:47 | PCM.HPANE ---
Patient Data Date of Service: May 09, 2017 (0710) Surgeon Admitting Provider:Josef Saldivar MD Attending Provider:Yasmin Null DO Primary Care Physician:Olga Simmons Other Provider: Reason for Visit Hypotension, Gi Bleed Ht/WT & BMI Height (Feet): 5 Height (Inches): 4.00 Weight (Kilograms): 60.600 Body Mass Index 22.00 Allergies Coded Allergies: Sulfa (Sulfonamide Antibiotics) (Verified Adverse Reaction, Severe, ITCHING, REDNESS, 03/17/17) Past Anesthesia History Anesthesia History: Denies:: Abnormal Airway, Anesthesia Reactions, Difficult Intubation, Fam Anesthesia Reaction, Fam Malignant Hypertherm, Malignant Hyperthermia Diabetes History Hx Diabetes?: No MRSA MRSA: No Medications Blood Thinner: Aspirin Reported Medications Docusate Calcium (Stool Softener)240 Mg [id number] Mg PO BID PRN For Constipation 05/08/17 Ascorbate Calcium (Vitamin C)500 Mg Tablet1,500 Mg PO DAILY 05/08/17 Cyanocobalamin (Vitamin B-12) (Vitamin B-12)1,000 Mcg Tablet1,000 Mcg PO DAILY 05/08/17 Acetaminophen/Diphenhydramine (Tylenol Pm Ex-Strength Caplet)500 Mg-25 Mg Tablet1 Each PO HS 10/30/15 Cholecalciferol (Vitamin D3) (Vitamin D3)2,000 Unit Tablet6,000 Unit PO DAILY 10/30/15 Turmeric Root Extract (Turmeric)500 Mg Ownbcuu851 Mg PO DAILY 10/31/14 Tamoxifen Citrate 20 Mg Rqupba00 Mg PO DAILY 08/01/14 Atorvastatin Calcium 40 Mg Cvnkrc77 Mg PO DAILY Ref 0 03/30/14 Nitroglycerin SL 0.4 Mg Tab.subl0.4 Mg SL Q5MIN PRN For Chest Pain 03/17/14 Metoprolol Tartrate 25 Mg [id number] Mg PO BID 30 Days Ref 0 03/17/14 Ibuprofen 400 Mg Tablet2 Tab PO BID PRN For Pain 03/17/14 Aspirin 81 Mg Tablet.dr81 Mg PO DAILY #1 BOTTLE Ref 0 03/17/14 Amantadine 100 Mg [id number] Mg PO DAILY 03/17/14 Discontinued Reported Medications Cyanocobalamin (Vitamin B-12) (Vitamin B-12)1,000 Mcg Tablet.er1,000 Mcg PO DAILY 8/1/14 History History of ENT Problems?: No HEENT History: Denies:: Abnormal Airway Cataracts Difficult Intubation Dysphagia Hearing Problem Sinus Problem TMJ Denture Type: None Teeth Condition: Within Normal Limits Hx of Heart Problems?: Yes Cardiovascular History: Positive for:: Cardiac Surgery (Heart cath 12/2013 w/ stent to RCA) Chest Pain (DC 12/2013) Edema (10 years ago left arm (post L mastectomy/radiation)) Hypertension (HYPERLIPIDEMIA) Valvular Heart Disease ( Tricuspid valve regurg) Denies:: AICD Abdominal Aortic Aneurism Atrial Fibrillation Congestive Heart Failure Heart Murmur Irregular Heartbeat (ECHO 06/17/16 EJ=55-60%) Pacemaker Thrombophlebitis Hx of Respiratory Problem?: Yes Respiratory History: Positive for:: Chest Surgery (heart cath) Denies:: Tuberculosis Use of C-PAP Machine Hx Neurologic Problems?: Yes Neurological History: Positive for:: Multiple Sclerosis (2009) Denies:: Alzheimer's Disease CVA Dementia Dizziness Headaches Parkinson's Disease Seizures Hx of GI Problems?: Yes Hx of Problems?: Yes Genitourinary History: Denies:: Kidney Stones Urinary Tract Infection HX of Peritoneal Dialysis: No Female Hx: Positive for:: Problems with Breasts? (HX LT MASTECTOMY FOR CA/RT BX/MASTECTOMY FOR CA ) Denies:: Currently Skin History: Positive for:: History Skin Disorders? Denies:: Pressure Ulcers Hx Musculoskeletal Problems?: Yes Musculoskeletal History: Positive for:: Back Injury (chronic lumbar pain/ RADICULOPATHY, cervical stenosis) Musculoskeletal Trauma (walking tripped fell without streched arm) Denies:: Degenerative Joint Joint Replacement Systemic Lupus Hx of Psycho/Social Problems?: No Hx Surgeries?: Yes (hysterectomy, cathlab (stent to RCA), L mastectomy, perferated Peptic ulcer) Hx Any Other Health Problems?: Yes Other History: Positive for:: Cancer (Breast - Lt mastectomy, current Rt breast Ca) Hospitalization (CARDIAC 2013) Denies:: Endocrine Disease (C/OF HEAT INTOLERANCE) Thyroid Disease History Blood Transfusions: Positive for:: Accept Blood Products? Denies:: Blood Transfuse Reaction Blood Transfusions Hx Diabetes: No Hx Alcohol Use: YesHx Substance Use: No Smoking Status: Never Smoker Have You Smoked inLast 12 mo: No Stop/Bang Treated for Sleep Apnea?: No Do You Have a CPAP Machine?: No S-Snoring: Do You Snore Loudly: No T-Tired: feel tired, fatigued: Yes O-Obsered: Observed not breath: No P-Blood Pressure: treated: Yes B- Body Mass Index > 35 kg/m2: No A- Age over 50: Yes N- Neck Large Circumference: No G- Gender Male: No JASMINA Total Score: 3 JASMINA Risk Assessment: Low Risk, <3 Yes Risk Assessment Category Category 1A: Patient has history of documented sleep apnea, and HAS NOT received any narcotic, sedative or anesthesia administration during this stay. Category 1B: Patient has history of documented sleep apnea, and HAS received any narcotic , sedative or anesthesia administration during this stay Category 2: Patient has SUSPECTED Obstructive Sleep Apnea, and HAS received any narcotic , sedative or anesthesia administration during this stay. Category 3: Patient has SUSPECTED Obstructive Sleep Apnea and HAS NOT received narcotic, sedative or anesthesia administration during this stay. Category 4: Outpatient in Procedural Areas with known sleep apnea or who screen positive for High Risk via the STOP/BANG questionnaire. Exam Exam Vital Signs Vital Signs Date Time Temp Pulse Resp B/P Pulse Ox O2 Delivery O2 Flow Rate FiO2 05/09/17 07:44 92 18 115/44 96 Room Air 05/09/17 07:37 93 20 104/45 99 Nasal Cannula 4 05/09/17 05:42 87 05/09/17 03:28 36.4 87 18 134/71 97 Room Air 05/08/17 23:56 36.8 84 18 125/71 97 Room Air General Appearance: Alert, Oriented X3, Cooperative HEENT/AIRWAY: MP 2 Lungs: Clear to Auscultation Heart: Exam Unremarkable Additional Information pale Meds/Labs/Diagnostics Admission Meds Current Medications Sodium Chloride (Normal Saline) 1,000 ml @ 0 mls/hr Q0M ONCE IV Last administered on 05/08/17 15:17; Start 05/08/17 at 15:04; Stop 05/08/17 at 15:06 ; Status DC Pantoprazole (Protonix Inj) 80 mg STAT ONCE IVPUSH Last administered on 18:40; Start 05/08/17 at 16:20; Stop 05/08/17 at 16:21; Status DC Octreotide Acetate 50 mcg 50 mcg ONCE ONCE IVPUSH Last administered on 17:13; Start 05/08/17 at 16:20; Stop 05/08/17 at 16:21; Status DC Pantoprazole 80 mg/Miscellaneous 1 ea/Sodium Chloride 100 ml @ 10 mls/hr ONCE ONCE IV Last administered on 05/08/17 18:40; Start 05/08/17 at 16:55; Stop at 02:54; Status DC Octreotide Acetate 500 mcg/ Sodium Chloride 101 ml @ 10.1 mls/hr ONCE ONCE IV Last administered on 05/08/17 17:15; Start 05/08/17 at 16:55; Stop 05/09/17 at 02:54; Status DC Pantoprazole 80 mg/Sodium Chloride 100 ml @ 10 mls/hr Q10H IV Last administered on 05/09/17 03:48; Start 05/09/17 at 05:00 Sodium Chloride 1,000 ml @ 100 mls/hr Q10H IV Last administered on 05/08/17 21:20; Start 05/08/17 at 20:40 Lactated Ringer's (Lr) 1,000 ml @ ud STK-MED ONCE IV Last administered on 05/09 07:36; Start 05/09/17 at 07:36; Stop 05/09/17 at 07:43; Status DC Labs Test 05/08/17 15:00 05/08/17 17:57 05/09/17 04:30 05/09/17 07:00 Neutrophils (%) (Auto) 73.0% (40-74) Lymphocytes (%) (Auto) 17.5% (14-46) Monocytes (%) (Auto) 6.9% (4-12) Eosinophils (%) (Auto) 1.9% (0-5) Basophils (%) (Auto) 0.4% (0-3) Prothrombin Time 10.3sec (8.1-12.5) Prothromb Time International Ratio 0.96ratio Magnesium Level 1.5mg/dL (1.6-2.6) Troponin T < 0.010ug/L (0.0-0.011) Hold Leos Top Tube Received (Received) Urine Color Yellow (YELLOW) Urine Appearance Cloudy (CLEAR,HAZY) Urine pH 7.5 (5.0-8.0) Urine Specific Jolon 1.010 (1.003-1.035) Urine Protein Negativemg/dL (NEG,TRACE) Urine Glucose (UA) Negativemg/dL (NEGATIVE) Urine Ketones Negativemg/dL (NEGATIVE) Urine Occult Blood Trace (NEGATIVE) Urine Nitrite Negative (NEGATIVE) Urine Bilirubin Negative (NEGATIVE) Urine Urobilinogen Normalmg/dL (NORMAL) Urine Leukocyte Esterase Trace (NEGATIVE) Urine RBC 0-2/hpf (0-2) Urine WBC 6-10/hpf (0-5) Urine Epithelial Cells Many/hpf (NONE-MOD) Urine Crystals Amorphous phosphates Urine Bacteria Moderate/hpf (NONE-FEW) Urine Hyaline Casts None/lpf (NONE) Urine Granular Casts None seen (NONE SEEN) Urine Waxy Casts None seen (NONE SEEN) Urine Red Blood Cell Casts None seen (NONE SEEN) Urine White Blood Cell Casts None seen (NONE SEEN) Urine Mucus None seen (None Seen) Urine Trichomonas None seen (NONE SEEN) Urine Yeast None (NONE SEEN) Urinalysis Comment None Urine Culture Reflexed Indicated White Blood Count 6.6th/mm3 (3.8-10.1) Red Blood Count 2.48mil/mm3 (3.90-5.20) Mean Corpuscular Volume 96.4fL (81-100) Mean Corpuscular Hemoglobin 30.6pg (27.0-35.0) Mean Corpuscular Hemoglobin Concent 31.8% (32.0-37.0) Red Cell Distribution Width 14.1% (12.3-15.4) Platelet Count 184bil/L (150-400) Sodium Level 141mEq/L (134-144) Potassium Level 4.2mEq/L (3.5-5.2) Chloride Level 111mEq/L (97-108) Carbon Dioxide Level 21mmol/L (18-29) Blood Urea Nitrogen 34mg/dL (8-27) Creatinine 0.60mg/dL (0.57-1.00) Estimat Glomerular Filtration Rate 141mL/min (>59) Glucose Level 118mg/dL (60-99) Calcium Level 8.3mg/dL (8.5-10.1) Total Bilirubin 0.2mg/dL (0.0-1.2) Aspartate Amino Transf (AST/SGOT) 16U/L (0-50) Alanine Aminotransferase (ALT/SGPT) 9U/L (0-32) Alkaline Phosphatase 41U/L (25-165) Total Protein 4.5g/dL (6.4-8.4) Albumin 2.9g/dL (3.4-5.0) Hemoglobin 8.1g/dL (12.0-15.6) Hematocrit 25.7% (35.0-46.0) Plan Impression Patient chart reviewed, patient interviewed and anesthestic plan with risks, benefits, and alternatives discussed, and informed consent obtained. NPO per Anesth. Guidelines: Yes ASA Physical Status: ASA3 Severe Disease Anesthetic Plan: GA Bene/Risks/Altern/Consents: Yes HP Complete Prior to Induction: Yes Lb Mcghee MD May 09, 2017 07:47
--- NOTE | 2017-05-09 07:48 | PCM.ANEP1 ---
Post Anesthesia PACU Phase 1 Assessment Vital Signs 101/43, 93, 97% , 24 Vital Signs Date Time Temp Pulse Resp B/P Pulse Ox O2 Delivery O2 Flow Rate FiO2 05/09/17 07:44 92 18 115/44 96 Room Air 05/09/17 07:37 93 20 104/45 99 Nasal Cannula 4 05/09/17 05:42 87 05/09/17 03:28 36.4 87 18 134/71 97 Room Air 05/08/17 23:56 36.8 84 18 125/71 97 Room Air Anesthetic Administered: GA Level of Alertness: Awake, talking TEMPLETON's with Equal Strength: Yes Pain: No Nausea or Vomiting: No CV Function & Hydration Stable: Yes Airway Device: none Lungs: Clear to Auscultation Dermatome Level: Full Sensation Summary uneventful sedation. good airway PACU Phase 2 Assessment Complications: No Follow up Care: No Patient Instructions Provided: N/A Lb Mcghee MD May 09, 2017 07:48
--- NOTE | 2017-05-09 08:18 | NUR ---
Return from Endo. Patient returned from Endo at @0810. A&O X3. Able to transfer from [facility] to bed with 1PA. VSS. Pantoprazole gtt infusing at 10mL/hr and NS infusing at 100mL/hr. Pt concerned about having to be admitted for 72 hours for Pantoprazole gtt and making arrangements for pet at home. RN will supply patient with phone book and request social work as needed. Will continue to monitor for bleeding. Call light within reach and patient able to call appropriately. Frequent rounding in place.
--- NOTE | 2017-05-09 11:13 | PCM.PNMED ---
Subjective Date of Service May 09, 2017 Subjective Patient was seen and examined this morning. She was alert, pleasant, sitting in bed. She describes no nausea vomiting or pain. Dr. Null and I discussed with her that she needs to stay away from ibuprofen and other NSAIDs as this likely contributed to her GI bleed. Nursing staff reports no acute overnight events. Exam Vital Signs Vital Sign - Last Date Time Temp Pulse Resp B/P Pulse Ox O2 Delivery O2 Flow Rate FiO2 05/09/17 08:37 88 05/09/17 08:14 36.8 18 135/66 99 Room Air 05/09/17 07:37 4 Intake and Output 05/08/17 05/08/17 05/09/17 Cumulative From/Thru 15:00 23:00 07:00 05/08/17 14:51 - 05/09/17 06:51 Intake Total 1000 ml 1202 ml 2202 ml Output Total 700 ml 700 ml Balance 1000 ml 502 ml 1502 ml Intake Oral 200 ml 200 ml IV Total 1000 ml 1002 ml 2002 ml Output Urine Total 700 ml 700 ml # Voids 1 1 Exam General: No acute distress, well-developed, well-nourished, appropriately interactive HEENT: Normocephalic, atraumatic. Neck: Supple with full range of motion. No jugular venous distension. Cardiovascular: Regular rate and rhythm with II/ systolic murmur heard at the right upper sternal border. Pulmonary: Clear to auscultation bilaterally with no crackles, wheezes, or rhonchi. Normal respiratory effort with no use of accessory muscles. Abdomen: Bowel tones present. Soft, nontender, nondistended. No hepatosplenomegaly or masses appreciated. Extremities: No clubbing, cyanosis, edema, or lymphadenopathy appreciated. Skin: Normal temperature, turgor, and texture; no rash, ulcers, or subcutaneous nodules appreciated. Neurological: Cranial nerves grossly intact. Normal muscle strength, tone, and bulk. Psychiatric: Normal mood and affect. Alert and oriented to person, place, and time. IVs and Medications Medications Reviewed: Medications were reviewed in detail Lab and Diagnostics Result Diagram: 05/09/17 0911 05/09/17 0430 Microbiology Urine Culture Pending X-Rays, CTs and MRIs PROCEDURE: X-RAY CHEST ONE VIEW, PORTABLE IMPRESSION: No acute cardiopulmonary disease. Dictated by: Laura Zuniga M.D. on 05/08/2017 at 15:19 PROCEDURE: CT ABDOMEN AND PELVIS WITH CONTRAST IMPRESSION: 1. Circumferential wall thickening involving the gastric antrum with mild irregularity and adjacent inflammation involving the first portion of the duodenum. Findings may represent an inflammatory process related to a duodenal ulcer, however neoplastic process cannot be excluded by CT imaging. Recommend endoscopy for further evaluation. 2. Severe fecal loading involving the right and transverse colon with moderate fecal loading involving the left and sigmoid colon. 3. Multiple pancreatic cystic lesions as described above. Cystic lesions may be related to intraductal papillary mucinous neoplasms (IPMN), however lesions are nonspecific and other etiologies including serous cystadenoma could produce similar appearance. Recommend dedicated CT scan or MRI scan of the pancreas in 3 months. 4. No free fluid or air. 5. Findings and recommendations telephoned to Dr. Juventino Waller on 2006 at 1721 hrs. Dictated by: Abby Ward MD, PhD on 05/08/2017 at 16:02 12-lead ECG Sinus Rhythm HR 99 Assessment & Plan Patient is a 71 y/o female with PMHx of PUD with perforation and associated peritonitis roughly 20 years ago, multiple sclerosis, and hypertension who presented after two episodes of bloody emesis. - Acute Hematemesis secondary to Upper GI Bleed, POA, Active, Stable - Patient with h/o PUD and perforated ulcer 20 years ago presents after two weeks of ABD pain and 2 episodes of hematemesis - Upper endoscopy performed morning of 05/09/17 describes a large duodenal ulcer with no bleeding vessels and some surrounding clots. Multiple other small ulcers were noted. - With recent increase in Ibuprofen use, this is a likely cause for bleed, although CT imaging does not rule out cancer - GI recommends following for 72 hours -Monitor H&H twice daily - Patient received Octreotide and Protonix in the ED, place patient on Protonix drip at 8mg/hr - Avoid NSAID and antiplatelet medications - Acute Hypotension, POA, Active, Stable - Patient 86/45 in the ED, likely from acute blood loss from hematemesis - Current BP 114/73 - Continue to monitor BP - Acute Normocytic Anemia, POA, Active, Stable - Patient had a Hbg of 8.8 on admission, likely from acute blood loss - Monitor H/H 8.1 and 25.7 today. - Acute Hypernatremia, POA, Active, resolved - Patient Sodium 145 on admission, likely contraction from emesis and fluid loss. Patient asymptomatic -Sodium 141 today - HTN, Chronic, Stable - Continue home dose of Metoprolol, hold if hypotensive - Hyperlipidemia, Chronic, Stable - Continue home dose statin - Multiple Sclerosis, Chronic, Stable - Patient w/ 41year h/o MS - Continue Amantidine home dose Patient DNR/DNI Disposition: continue to monitor for 72 hours per GIs recommendations GI Prophylaxis: Proton Pump Inhibitor VTE Prophylaxis: SCDs VTE Mechanical Devices: Intermittant Pneumatic CD Resuscitation Status: DNR/DNI:Do Not Resuscitate/Intubate Attending Statement The patient was seen and examined together with Dr. Grijalva on 05/09/17 and I have added additional information to the note above. Roger Grijalva DO May 09, 2017 11:13 Yasmin Null DO May 09, 2017 12:27
[2017-05-09] MEDS: Sucralfate 100 mg/mL 10 mL Suspension PO SCH ×2 (13:12→17:41)
--- NOTE | 2017-05-09 14:43 | ENDO ---
[address] [address] ENDOSCOPY PROCEDURE PATIENT: TRISTAN DUMONT : 1945 MR#: [id number] ADMIT: 05/08/2017 JOB ID: [id number] DATE OF SERVICE: 05/09/2017 TYPE OF OPERATION: Esophagogastroduodenoscopy, biopsy. PREOPERATIVE DIAGNOSIS: Coffee-ground emesis. POSTOPERATIVE DIAGNOSES: 1. Widely open, patent Schatzki ring, status post biopsy. 2. Two ulcers seen at the pylorus, clean based, nonbleeding, measuring about 4 mm in size. 3. A large, deep, 3 cm ulcer in the duodenal bulb with recent stigmata of bleed, status post argon plasma coagulation. ANESTHESIA: Monitored anesthesia care. COMPLICATIONS: None. BLOOD LOSS: Minimal. DESCRIPTION OF PROCEDURE: After risks and benefits explained to the patient, informed consent was obtained. After anesthesia administered, an upper endoscope was then inserted in the mouth, intubated into the esophagus, stomach, second portion of duodenum. Mucosa carefully examined. After procedure was done, scope withdrawn, procedure terminated. FINDINGS: Upon inspection of the esophagus, there was widely open, patent Schatzki ring seen at the distal esophagus. The Z-line located at 40 cm from incisors. Upon entering the stomach, there were two ulcers, clean based, nonbleeding, seen at the pylorus of the stomach. Retroflexion was normal. Upon entering the duodenum, there was a large, deep, 3 cm ulcer at the bulb with recent stigmata of bleed. Argon plasma coagulation was deployed with good success. The first and second portion were normal. The pylorus/esophagus was slightly distorted due to the ulcers that were seen at that region. Biopsies taken of antrum and body, distal esophagus. IMPRESSIONS: 1. Widely open, patent Schatzki ring. 2. Two ulcers in the pylorus, clean based, nonbleeding, measuring 4 mm in size. 3. Deep, large, 3 cm ulcer with recent stigmata of bleed. The bulb of duodenum status post argon plasma coagulation. RECOMMENDATIONS: 1. Clear liquid diet at this time. Do not advance as tolerated at this time for the next 24 hours. 2. Serial hematocrits. 3. Protonix drip for at least 72 hours. 4. Carafate 1 g by mouth four times a day. 5. Avoid anticoagulation and NSAIDS. Will continue to follow.
--- NOTE | 2017-05-09 18:53 | NUR ---
Dark tarry stool: Patient has had 5 large brown formed stools. Last BM this evening at about 1815 was dark/tarry. MD was notified. No new orders at this time. Frequent rounding in place.
[2017-05-09] MEDS: diphenhydrAMINE 25 mg Capsule PO PRN (20:38)
[2017-05-10] VITALS (12 sets, daily range): BP systolic 109–131; BP diastolic 55–72; PULSE 75–97; RESP 15–18; O2SAT 98–99
[2017-05-10] MEDS: Pantoprazole Inj 80 MG in 0.9% Sodium Chloride 80 ML IV SCH ×3 (01:32→14:06)
--- NOTE | 2017-05-10 06:19 | NUR ---
GI/Activity H&H low, but remains stable. Patient able to get some sleep last night. 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 Protonix drip continues. Patient would like to be more active today, worries about legs deconditioning.
[2017-05-10 08:07] LABS: Mean Corpuscular Hemoglobin 30.4 pg (27.0-35.0)
[2017-05-10] MEDS: Sucralfate 100 mg/mL 10 mL Suspension PO SCH ×3 (08:31→18:44)
[2017-05-10 08:36] LABS: Magnesium 1.7 mg/dL (1.6-2.6)
--- NOTE | 2017-05-10 13:35 | PCM.PNMED ---
Subjective Date of Service May 10, 2017 Subjective no complaints tolerated chicken salad sandwich for lunch no nausea, vomiting or abdominal pain denies melena Exam Vital Signs Vital Sign - Last Date Time Temp Pulse Resp B/P Pulse Ox O2 Delivery O2 Flow Rate FiO2 05/10/17 12:06 36.7 81 18 118/71 98 Room Air 05/09/17 07:37 4 Intake and Output 05/09/17 05/09/17 05/10/17 Cumulative From/Thru 15:00 23:00 07:00 05/08/17 14:51 - 05/10/17 06:44 Intake Total 200 ml 2082 ml 727 ml 5211 ml Output Total 1800 ml 900 ml 3400 ml Balance 200 ml 282 ml -173 ml 1811 ml Intake Oral 760 ml 600 ml 1560 ml IV Total 200 ml 1322 ml 127 ml 3651 ml Output Urine Total 1800 ml 900 ml 3400 ml # Voids 1 # Bowel Movements 4 1 5 Exam GEN- no distress, appropriate HEENT- pallor present Resp-clear CVS-RRR aBDOMEN- BENIGN Lab and Diagnostics Result Diagram: 05/10/17 1200 05/10/17 0748 Microbiology Urine Culture Pending X-Rays, CTs and MRIs PROCEDURE: X-RAY CHEST ONE VIEW, PORTABLE IMPRESSION: No acute cardiopulmonary disease. Dictated by: Laura Zuniga M.D. on 05/08/2017 at 15:19 PROCEDURE: CT ABDOMEN AND PELVIS WITH CONTRAST IMPRESSION: 1. Circumferential wall thickening involving the gastric antrum with mild irregularity and adjacent inflammation involving the first portion of the duodenum. Findings may represent an inflammatory process related to a duodenal ulcer, however neoplastic process cannot be excluded by CT imaging. Recommend endoscopy for further evaluation. 2. Severe fecal loading involving the right and transverse colon with moderate fecal loading involving the left and sigmoid colon. 3. Multiple pancreatic cystic lesions as described above. Cystic lesions may be related to intraductal papillary mucinous neoplasms (IPMN), however lesions are nonspecific and other etiologies including serous cystadenoma could produce similar appearance. Recommend dedicated CT scan or MRI scan of the pancreas in 3 months. 4. No free fluid or air. 5. Findings and recommendations telephoned to Dr. Juventino Waller on 2006 at 1721 hrs. Dictated by: Abby Ward MD, PhD on 05/08/2017 at 16:02 12-lead ECG Sinus Rhythm HR 99 Assessment & Plan GI bleed/Peptic Ulcer disease -no active bleeding H/H stable -continue PPI drip for one more day -follow H/H, transfuse blood products as needed -repeat EGD in 8-12 weeks -Recommend PPI BID until repeat EGD -avoid NSAIDS GI Prophylaxis: Proton Pump Inhibitor VTE Prophylaxis: SCDs VTE Mechanical Devices: Intermittant Pneumatic CD Resuscitation Status: DNR/DNI:Do Not Resuscitate/Intubate Kassy Jimenez MD May 10, 2017 13:35
--- NOTE | 2017-05-10 14:59 | NUR ---
Social Work: Assessment D&A: Please see initial assessment. CARPENTER/LABOR reviewed EMR, which states pt is at [facility] with hypotension and a GI bleed. Pt's primary insurance is [facility]. Pt's PCP is IDANIA Freitas. Pt's readmit score has not yet been assessed. CARPENTER/LABOR met with pt at pt's bedside and explained CARPENTER/LABOR role. Pt reports that she lives at home with her , for whom she functions as primary caregiver. [facility] [place] also assists approximately 4 hours per week; pt reports that hs eis aware of the local resources that exist, should she need additional support or care for her . The pt reports that her home is one level and there is one external steps. Pt's brother, Faraz Walker ([phone]) is her designated sewing machine operator floorperson but is not her DPOA. SW encouraged pt to bring a copy of her completed advanced directive to [facility] for scanning. Pt reports that she does use any equipment to ambulate, at baseline, she drives his own car. Pt does not endorse a hx of SNF admission or H.H. Pt does not utilize any community services, nor does she have a pillowcase folder. Pt does not anticipate any SW needs at d/c. P: Pt likely to d/c home with no needs via POV; CARPENTER/LABOR team will continue to follow. JALEN Whyte Addendum: 05/10/17 at 1509 by ANAI MCCLOUD SS Amended: Links added.
--- NOTE | 2017-05-10 17:26 | NUR ---
Labs 0940 - Discussed her care with Dr. Null, Dr. Chen, and the rest of the multidisciplinary care team during morning rounds. Informed them that her H/H labs this morning were 7.2/23.0 and her potassium was 3.4. This information was acknowledged. Was told that another H/H lab draw was scheduled at [address] Chen with the results. 1234 - Paged Dr. Chen as her H/H lab draw was noted to be 7.1/22.1. This information was acknowledged. Asked if her Protonix drip should be continued and he said to continue it for now. Called Pharmacy for another Protonix bag as she had run out. It was sent up and restarted. 1414 - Spoke to Dr. Chen for the patient as she had requested some Physical Therapy. He placed an order for her. Also, reminded him that her potassium had been 3.4 this morning and nothing had been ordered for her. He said he would look into it. Care continues. Addendum: 05/10/17 at 1838 by CHRISTINA ALCOCER RN 1754 - Dr. Chen called to say that he wanted 1 unit of blood given for her dropping H/H. He also said to obtain another H/H lab draw 2 hours post per protocol. 1814 - The blood bank called to say her blood was ready. 1834 - Her IV infiltrated. It was discontinued intact. Heat pack to be applied to the site. A new IV is being placed right now. Will pass along to independent trader to give the one unit of blood as change of shift is in about 10 minutes. Care continues. Addendum: 05/10/17 at 1858 by CHRISTINA ALCOCER RN 1845 - Dr. Chen ordered by mouth Potassium replacement. It was just given. Care continues.
[2017-05-10] MEDS ORDERED: Potassium Chloride 20 mEq SR Tablet PO ONE (17:50)
[2017-05-10] MEDS ORDERED: 0.9% Sodium Chloride 250 ML IV SCH (17:50)
--- NOTE | 2017-05-10 18:02 | PCM.PNMED ---
Subjective Date of Service May 10, 2017 Subjective Overnight: Patient had 5 large brown formed stools, yesterday BM was reported to be dark and tarry. Today: Patient seen and examined. No complaints, alert pleasant sitting in bed. Denies nausea, vomiting, headache, dizziness, chest pain, shortness of breath or abdominal pain. Exam Vital Signs Vital Sign - Last Date Time Temp Pulse Resp B/P Pulse Ox O2 Delivery O2 Flow Rate FiO2 05/10/17 06:13 83 05/10/17 04:19 36.9 18 110/62 98 Room Air 05/09/17 07:37 4 Intake and Output 05/09/17 05/09/17 05/10/17 Cumulative From/Thru 15:00 23:00 07:00 05/08/17 14:51 - 05/10/17 06:44 Intake Total 200 ml 2082 ml 727 ml 5211 ml Output Total 1800 ml 900 ml 3400 ml Balance 200 ml 282 ml -173 ml 1811 ml Intake Oral 760 ml 600 ml 1560 ml IV Total 200 ml 1322 ml 127 ml 3651 ml Output Urine Total 1800 ml 900 ml 3400 ml # Voids 1 # Bowel Movements 4 1 5 Exam General: Awake and alert sitting up in bed in no acute distress, well-developed , well-nourished, appropriately interactive HEENT: Normocephalic, atraumatic. External ears without defect. Pupils equal, round, and reactive to light and accommodation. Pale conjunctiva. Moist mucosal Neck: Supple with full range of motion. No jugular venous distension. Cardiovascular: Regular rate and rhythm with very soft systolic murmur I/ heard at the right upper sternal border Pulmonary: Clear to auscultation bilaterally with no crackles, wheezes, or rhonchi. Normal respiratory effort with no use of accessory muscles. Abdomen: Soft, nontender, nondistended. Extremities: No clubbing, cyanosis, edema. Cast on the left forearm Skin: Normal temperature, turgor, and texture Neurological: Cranial nerves grossly intact. Psychiatric: Normal mood and affect. Alert and oriented to person, place, and time. IVs and Medications Medications Reviewed: Medications were reviewed in detail Lab and Diagnostics Result Diagram: 05/09/17 2133 05/09/17 0430 X-Rays, CTs and MRIs . X-RAY CHEST ONE VIEW, PORTABLE IMPRESSION: No acute cardiopulmonary disease. Dictated by: Laura Zuniga M.D. on 05/08/2017 CT ABDOMEN AND PELVIS WITH CONTRAST IMPRESSION: 1. Circumferential wall thickening involving the gastric antrum with mild irregularity and adjacent inflammation involving the first portion of the duodenum. Findings may represent an inflammatory process related to a duodenal ulcer, however neoplastic process cannot be excluded by CT imaging. Recommend endoscopy for further evaluation. 2. Severe fecal loading involving the right and transverse colon with moderate fecal loading involving the left and sigmoid colon. 3. Multiple pancreatic cystic lesions as described above. Cystic lesions may be related to intraductal papillary mucinous neoplasms (IPMN), however lesions are nonspecific and other etiologies including serous cystadenoma could produce similar appearance. Recommend dedicated CT scan or MRI scan of the pancreas in 3 months. 4. No free fluid or air. Dictated by: Abby Ward MD, PhD on 05/08/2017 12-lead ECG Sinus Rhythm HR 99 Additional Diagnostics . ENDOSCOPY PROCEDURE IMPRESSIONS: 1. Widely open, patent Schatzki ring. 2. Two ulcers in the pylorus, clean based, nonbleeding, measuring 4 mm in size. 3. Deep, large, 3 cm ulcer with recent stigmata of bleed. The bulb of duodenum status post argon plasma coagulation. Jean Mulligan MD 05/09/17 0732 Assessment & Plan Patient is a 71 y/o female with PMHx of PUD with perforation and associated peritonitis roughly 20 years ago, multiple sclerosis, and hypertension admitted for upper GI bleed. - Acute Hematemesis secondary to Upper GI Bleed, POA, Active, Stable - Patient with h/o PUD and perforated ulcer 20 years ago presents after two weeks of ABD pain and 2 episodes of hematemesis - Upper endoscopy performed morning of 05/09/17 describes a large duodenal ulcer with no bleeding vessels and some surrounding clots. Multiple other small ulcers were noted. - With recent increase in Ibuprofen use, this is a likely cause for bleed, although CT imaging does not rule out cancer -Hemoglobin continues to trend down 7.1 last measurement -1 unit PRBCs ordered for transfusion (05/10/17) -Continue to monitor H&H posttransfusion - GI recommends following for 72 hours, repeat EGD in 8-12 weeks - Continue PPI drip, GI recommends continue PPI twice a day until repeat EGD - Avoid NSAID and antiplatelet medications - Acute Hypotension, POA, Active, Stable - Patient 86/45 in the ED, likely from acute blood loss from hematemesis - Current BP 109/59 - Blood products transfusion as above - Continue to monitor BP - Acute Normocytic Anemia, POA, Active, Stable - Patient had a Hbg of 8.8 on admission, likely from acute blood loss - Hemoglobin as above - Pending blood product transfusion - Continue to monitor - Acute Hypernatremia, POA, Active, resolved - Patient Sodium 145 on admission, likely contraction from emesis and fluid loss. Patient asymptomatic - Sodium 143 05/10/2017 - HTN, Chronic, Stable -Continue to hold home metoprolol - Hyperlipidemia, Chronic, Stable - Continue home dose statin - Multiple Sclerosis, Chronic, Stable - Patient w/ 41year h/o MS - Continue Amantidine home dose Patient DNR/DNI Disposition: continue to monitor per GIs recommendations. Patient is being transfused 1 unit PRBC today will follow up in AM for stabilization of H&H. GI Prophylaxis: Proton Pump Inhibitor VTE Prophylaxis: SCDs VTE Mechanical Devices: Intermittant Pneumatic CD Resuscitation Status: DNR/DNI:Do Not Resuscitate/Intubate Attending Statement The patient was seen and examined together with Dr. Chen on 05/10/17 and I have added additional information to the note above. YVETTE CHEN DO May 10, 2017 06:59 Yasmin Null DO May 11, 2017 11:52
[2017-05-11] MEDS: diphenhydrAMINE 25 mg Capsule PO PRN (01:32)
[2017-05-11] MEDS: Pantoprazole Inj 80 MG in 0.9% Sodium Chloride 80 ML IV SCH (01:53)
[2017-05-11 03:08] VITALS: BP 142/68; PULSE 85; RESP 20; O2SAT 99
--- NOTE | 2017-05-11 03:19 | NUR ---
PRBC transfusion Pretransfuion H/H 7.1, transfused 1 unit prbc, post transfusion H/H 8.7.36, continue on protonix gtt. VSS. Assumed care from [id number]. Pt report given to Modesta Rowe RN
[2017-05-11 03:39] LABS: BASOPHILS % (AUTO) 0.5 % (0-3); EOSINOPHILS % (AUTO) 3.7 % (0-5); MONOCYTES % (AUTO) 7.5 % (4-12); Mean Corpuscular Hemoglobin 30.6 pg (27.0-35.0); Mean Corpuscular Volume 93.2 fL (81-100); NEUTROPHILS % (AUTO) 71.6 % (40-74); Platelet Count 165 bil/L (150-400)
--- NOTE | 2017-05-11 07:11 | NUR ---
H&H Pt's H&H stable this AM after 1 unit PRBC @ 9.4/28.6, pt uses call light appropriately for assistance to BSC with urinary frequency. No other issues noted at this time.
[2017-05-11] MEDS: Sucralfate 100 mg/mL 10 mL Suspension PO SCH ×2 (08:12→11:49)
--- NOTE | 2017-05-11 08:15 | PCM.PNSURG ---
Subjective Date of Service: May 11, 2017 Date of Service: May 11, 2017 Visit Information: Subjective: hb 7.4-> 9.4 after 1 unit prbc. no overt signs gi bleed. Postop General: No Complaints Objective Vital Sign- Last 8 Hours Date Time Temp Pulse Resp B/P Pulse Ox O2 Delivery O2 Flow Rate FiO2 05/11/17 03:08 36.7 85 20 142/68 99 Room Air Intake and Output- Last 8 Hour 05/11/17 Cumulative From/Thru 07:00 05/08/17 14:51 - 05/11/17 06:51 Intake Total 500 ml 7206 ml Output Total 1350 ml 5850 ml Balance -850 ml 1356 ml Intake Oral 400 ml 2920 ml IV Total 100 ml 3901 ml Packed Cells 385 ml Output Urine Total 1350 ml 5850 ml # Voids 1 # Bowel Movements 6 General: Oriented X3 Neck: Supple Lungs: Clear to Auscultation Heart: Exam Unremarkable Abdomen: Benign, Soft, Non-tender, Non-distended, Normoactive bowel tones Extremities: Distal Pulses Palpable Result Diagram: 05/11/17 0330 05/11/17 0330 Assessment & Plan Impression This is a 71-year-old, female with a history of multiple sclerosis, status post peptic ulcer disease with acute peritonitis in 1996 who underwent exploratory laparotomy with patch placement, lymphedema, myocardial infarction with stent placement, hyperlipidemia, hypertension, pancreatic cyst, who presents here for coffee-grounds emesis due to duodenal bulb ulcer. egd 05/08- IMPRESSIONS: 1. Widely open, patent Schatzki ring. 2. Two ulcers in the pylorus, clean based, nonbleeding, measuring 4 mm in size. 3. Deep, large, 3 cm ulcer with recent stigmata of bleed. The bulb of duodenum status post argon plasma coagulation. RECOMMENDATIONS: 1. Clear liquid diet at this time. Do not advance as tolerated at this time for the next 24 hours. 2. Serial hematocrits. 3. Protonix drip for at least 72 hours. 4. Carafate 1 g by mouth four times a day. 5. Avoid anticoagulation and NSAIDS. Recs: - d/c protonix gtt - start protonix 40mg bid - carafate 1g po qid - ok d/c home from gi perspective - avoid nsaids, asa, antigcoagulation - f/u gi clinic 2 wks post d/c - repeat egd 2-3 months to document healing ulcers as outpatient - await bx results will sign off. Problems: VTE Prophylaxis: SCDs Resuscitation Status: DNR/DNI:Do Not Resuscitate/Intubate Jean Mulligan MD May 11, 2017 08:15
[2017-05-11 09:16] VITALS: BP 149/71; PULSE 90; RESP 16; O2SAT 98
[2017-05-11 10:12] VITALS: PULSE 94
--- NOTE | 2017-05-11 10:24 | NUR ---
Evaluation completed. Please go to "Notes" then click on "Assessments and Notes" (bottom left corner of screen). Then select appropriate discipline tab on top of screen.
[2017-05-11 11:48] VITALS: BP 145/71; PULSE 85; RESP 18; O2SAT 99
[2017-05-11] MEDS ORDERED: Pantoprazole 40 mg ER24 Tablet PO SCH (12:05)
[2017-05-11] MEDS ORDERED: PANT40TA3 PO (14:10)
[2017-05-11] MEDS ORDERED: SUCR1ORA PO (14:10)
--- NOTE | 2017-05-11 14:19 | PCM.DIMED ---
Roger Grijalva DO 05/11/17 1417: Discharge Instructions Date of Service May 11, 2017 Dates of Hospitalization May 08, 2017 at 19:52 Discharge Diagnosis Discharge Diagnosis Duodenal ulcers Blood loss Anemia Multiple sclerosis Hypertension Medication Instructions Additional med instructions We are continuing your sucralfate to take at home 4 times per day for 2 weeks until you see GI. He will also be taking pantoprazole 40 mg twice daily for your ulcers. He can resume taking your regularly prescribed medications as except for aspirin and ibuprofen. Please stay away from any NSAIDs or blood thinners. Test Results Test Results Your upper endoscopy showed a large ulcer at the beginning of her small intestine, with surrounding clots and several other smaller ulcers. Your red blood cell levels are coming back up, and should continue to rise. He had a normal chest x-ray. The CT scan of her abdomen showed inflammation of your stomach and small intestine likely from her ulcers. It also showed a cyst in her pancreas. It was recommended that he have another CT in 3 months to reevaluate this. You can have your primary care doctor orders. Diet Discharge Diet: Heart Healthy Activity Discharge Activity: Limited until seen by PCP Call your provider Call your provider for: Fever or Chills, Shortness of breath, Bleeding, Chest pain, Vomitting, Excessive diarrhea, Weakness (unilateral) Patient Instructions Patient Instructions Please follow-up with your primary care provider in 1-2 weeks. The GI clinic would also like to see you in one to 2 weeks. The GI clinic would also like to perform another upper endoscopy to evaluate the healing of your ulcers in 2-3 months. Please be sure to stay away from medications that are known to aggravate ulcers and constantly need such as naproxen, ibuprofen, aspirin. He started to have dark or tarry stools again, have shortness of breath, dizziness , or chest pain seek medical attention. Follow-up Provider: Odell Baez MD Follow-up with PCP in: 1 week Provider: Jean Mulligan MD Follow-up in: 2 weeks Yasmin Null DO 05/11/17 1546: Discharge Instructions Attending's Statement The patient was seen and examined together with Dr. Grijalva on 05/11/17 and I agree with the history, exam and plan as outlined in the note above. Roger Grijalva DO May 11, 2017 14:17 Yasmin Null DO May 11, 2017 15:46
--- NOTE | 2017-05-11 15:41 | NUR ---
Discharge Pt was educated on diagnosis, new scripts, and future care. Pt demonstrated understanding of all teaching. Scripts given to patient with other MD DC info. Tele leads removed. IVs removed. Pt left with all personal belongings and was escorted by staff member down to vehicle.
--- NOTE | 2017-05-11 16:47 | NUR ---
Social Work: Discharge/Multidisciplinary Rounds D: Pt discussed in multidisciplinary rounds; the patient is being discharge home with no sw needs. [employer] was not able to meet with patient at bedside prior to discharge as patient had already departed. Per bedside RN note, patient expressed no concern with her discharge plan to go home. PT had worked with pt and was recommending home with possible out patient PT if patient did not regain all of her strength after discharge. [employer] attempted to contact patient at home to confirm that she had no discharge needs. No answer on home telephone. A: Pt who is I at baseline and lives with her spouse. P: Patient discharged home with no discharge needs from social work. JALEN Mckeon
--- NOTE | 2017-05-11 17:41 | PCM.DC.MED ---
Discharge Summary Date of Service May 11, 2017 Dates of Hospitalization Date of Hospital Admission May 08, 2017 at 19:52 Date of Discharge: May 11, 2017 Providers: Admitting Physician: Josef Saldivar MD Primary Care Physician: Olga Simmons Attending Physician: Yasmin Null DO Diagnosis at Time of Discharge Diagnosis at Time of Discharge Duodenal ulcers Blood loss Anemia Multiple sclerosis Hypertension Consultations GI, Dr. Mulligan Procedures XRay, CTs & MRIs . X-RAY CHEST ONE VIEW, PORTABLE IMPRESSION: No acute cardiopulmonary disease. Dictated by: Laura Zuniga M.D. on 05/08/2017 CT ABDOMEN AND PELVIS WITH CONTRAST IMPRESSION: 1. Circumferential wall thickening involving the gastric antrum with mild irregularity and adjacent inflammation involving the first portion of the duodenum. Findings may represent an inflammatory process related to a duodenal ulcer, however neoplastic process cannot be excluded by CT imaging. Recommend endoscopy for further evaluation. 2. Severe fecal loading involving the right and transverse colon with moderate fecal loading involving the left and sigmoid colon. 3. Multiple pancreatic cystic lesions as described above. Cystic lesions may be related to intraductal papillary mucinous neoplasms (IPMN), however lesions are nonspecific and other etiologies including serous cystadenoma could produce similar appearance. Recommend dedicated CT scan or MRI scan of the pancreas in 3 months. 4. No free fluid or air. Dictated by: Abby Wadr MD, PhD on 05/08/2017 ECG 12 Lead Sinus Rhythm HR 99 Other Diagnostics . ENDOSCOPY PROCEDURE IMPRESSIONS: 1. Widely open, patent Schatzki ring. 2. Two ulcers in the pylorus, clean based, nonbleeding, measuring 4 mm in size. 3. Deep, large, 3 cm ulcer with recent stigmata of bleed. The bulb of duodenum status post argon plasma coagulation. Jean Mulligan MD 05/09/17 0732 Brief History Patient is a 71 y/o female with PMHx of PUD with perforation and associated peritonitis roughly 20 years ago, multiple sclerosis, and hypertension who presented after two episodes of bloody emesis. Patient reports that she was walking to the bathroom prior to admission and felt her legs give out from under her. She was lowered to the ground and became nauseous and proceeded to have dark red, coffee colored emesis. EMS was called and she had another coffee ground emesis before they took her to the hospital. She denied any lightheadedness, LOC, diarrhea, urinary symptoms, CP, or SOB. She reported that she had been taking ibuprofen the week previous for abdominal pain. In the ED patient was found to be hypotensive with a blood pressure of 86/45, and anemic with a Hbg 8.8. Patient was given 1L NS and placed on octreotide and protonix. GI was consulted in the ED. An upper endoscopy was performed which revealed a large duodenal ulcer surrounded by several clots, with multiple smaller ulcers. They recommended following her for 72 hours in the hospital, following up in the GI clinic in 2 weeks, and having another upper endoscopy performed in 2-3 months. Patient received sucralfate and was eventually transitioned from IV Protonix to oral. The night of 05/10/17 patient's hemoglobin dropped to 7.1 and she received 1 unit of blood brought her back up to 9.4. On the day of discharge, her hemoglobin was 10.1, her vital signs were stable, and patient was asymptomatic. Hospital Course See below for detailed hospital course - Acute Hematemesis secondary to Upper GI Bleed, POA, resolved - Patient with h/o PUD and perforated ulcer 20 years ago presents after two weeks of ABD pain and 2 episodes of hematemesis - Upper endoscopy performed morning of 05/09/17 describes a large duodenal ulcer with no bleeding vessels and some surrounding clots. Multiple other small ulcers were noted. - With recent increase in Ibuprofen use, this is a likely cause for bleed, although CT imaging does not rule out cancer -1 unit PRBCs ordered for transfusion (05/10/17) -Hemoglobin 10.1 on day of discharge - GI recommends repeat EGD in 8-12 weeks -Continue PPI and sucralfate - Avoid NSAID and antiplatelet medications - Acute Hypotension, POA, resolved - Patient 86/45 in the ED, likely from acute blood loss from hematemesis - Current BP 142/68 on 05/11/17 - Blood products transfusion as above - Acute Normocytic Anemia, POA, stable - Patient had a Hbg of 8.8 on admission, likely from acute blood loss - Hemoglobin 10.1 on day of discharge - Acute Hypernatremia, POA, Active, resolved - Patient Sodium 145 on admission, likely contraction from emesis and fluid loss. Patient asymptomatic - Sodium 146 on day of discharge - HTN, Chronic, Stable -Continue to hold home metoprolol - Hyperlipidemia, Chronic, Stable - Continue home dose statin - Multiple Sclerosis, Chronic, Stable - Patient w/ 41year h/o MS - Continue Amantidine home dose Patient DNR/DNI Disposition: Home Exam Vital Signs (Last) Date Time Temp Pulse Resp B/P Pulse Ox O2 Delivery O2 Flow Rate FiO2 05/11/17 11:48 36.7 85 18 145/71 99 Room Air 05/09/17 07:37 4 Exam General: No acute distress, well-developed, well-nourished, appropriately interactive HEENT: Normocephalic, atraumatic. External ears without defect. Pupils equal, round, and reactive to light and accommodation. Neck: Supple with full range of motion. No jugular venous distension. No bruits. No lymphadenopathy or thyromegaly. Cardiovascular: Regular rate and rhythm with no 1/6 systolic murmur. Good capillary refill Pulmonary: Clear to auscultation bilaterally with no crackles, wheezes, or rhonchi. Normal respiratory effort with no use of accessory muscles. Abdomen: Bowel tones present. Soft, nontender, nondistended. No hepatosplenomegaly or masses appreciated. Extremities: No clubbing, cyanosis, edema, or lymphadenopathy appreciated. Left wrist casted. Skin: Normal temperature, turgor, and texture; no rash, ulcers, or subcutaneous nodules appreciated. Neurological: Cranial nerves grossly intact. Normal muscle strength, tone, and bulk. Reflexes, coordination, and sensory function within normal limits. No known gait impairment. Psychiatric: Normal mood and affect. Alert and oriented to person, place, and time. Test 05/08/17 15:00 05/08/17 17:57 05/11/17 03:30 05/11/17 13:15 Prothrombin Time 10.3sec (8.1-12.5) Prothromb Time International Ratio 0.96ratio Troponin T < 0.010ug/L (0.0-0.011) Hold Leos Top Tube Received (Received) Urine Color Yellow (YELLOW) Urine Appearance Cloudy (CLEAR,HAZY) Urine pH 7.5 (5.0-8.0) Urine Specific [place] 1.010 (1.003-1.035) Urine Protein Negativemg/dL (NEG,TRACE) Urine Glucose (UA) Negativemg/dL (NEGATIVE) Urine Ketones Negativemg/dL (NEGATIVE) Urine Occult Blood Trace (NEGATIVE) Urine Nitrite Negative (NEGATIVE) Urine Bilirubin Negative (NEGATIVE) Urine Urobilinogen Normalmg/dL (NORMAL) Urine Leukocyte Esterase Trace (NEGATIVE) Urine RBC 0-2/hpf (0-2) Urine WBC 6-10/hpf (0-5) Urine Epithelial Cells Many/hpf (NONE-MOD) Urine Crystals Amorphous phosphates Urine Bacteria Moderate/hpf (NONE-FEW) Urine Hyaline Casts None/lpf (NONE) Urine Granular Casts None seen (NONE SEEN) Urine Waxy Casts None seen (NONE SEEN) Urine Red Blood Cell Casts None seen (NONE SEEN) Urine White Blood Cell Casts None seen (NONE SEEN) Urine Mucus None seen (None Seen) Urine Trichomonas None seen (NONE SEEN) Urine Yeast None (NONE SEEN) Urinalysis Comment None Urine Culture Reflexed Indicated White Blood Count 8.0th/mm3 (3.8-10.1) Red Blood Count 3.07mil/mm3 (3.90-5.20) Mean Corpuscular Volume 93.2fL (81-100) Mean Corpuscular Hemoglobin 30.6pg (27.0-35.0) Mean Corpuscular Hemoglobin Concent 32.9% (32.0-37.0) Red Cell Distribution Width 14.9% (12.3-15.4) Platelet Count 165bil/L (150-400) Neutrophils (%) (Auto) 71.6% (40-74) Lymphocytes (%) (Auto) 16.0% (14-46) Monocytes (%) (Auto) 7.5% (4-12) Eosinophils (%) (Auto) 3.7% (0-5) Basophils (%) (Auto) 0.5% (0-3) Sodium Level 146mEq/L (134-144) Potassium Level 3.9mEq/L (3.5-5.2) Chloride Level 115mEq/L (97-108) Carbon Dioxide Level 20mmol/L (18-29) Blood Urea Nitrogen 15mg/dL (8-27) Creatinine 0.47mg/dL (0.57-1.00) Estimat Glomerular Filtration Rate 187mL/min (>59) Glucose Level 96mg/dL (60-99) Calcium Level 7.9mg/dL (8.5-10.1) Magnesium Level 2.0mg/dL (1.6-2.6) Total Bilirubin 0.5mg/dL (0.0-1.2) Aspartate Amino Transf (AST/SGOT) 18U/L (0-50) Alanine Aminotransferase (ALT/SGPT) 10U/L (0-32) Alkaline Phosphatase 48U/L (25-165) Total Protein 4.8g/dL (6.4-8.4) Albumin 2.9g/dL (3.4-5.0) Hemoglobin 10.1g/dL (12.0-15.6) Hematocrit 30.2% (35.0-46.0) Discharge Medications Discharge Medications Acetaminophen/Diphenhydramine (Tylenol Pm Ex-Strength Caplet) 500 Mg-25 Mg Tablet 1 EACH PO HS (Reported) Amantadine (Amantadine) 100 Mg Cap 100 MG PO DAILY (Reported) Ascorbate Calcium (Vitamin C) 500 Mg Tablet 1,500 MG PO DAILY (Reported) Atorvastatin Calcium (Atorvastatin Calcium) 40 Mg Tablet 40 MG PO DAILY ( Reported) Cholecalciferol (Vitamin D3) (Vitamin D3) 2,000 Unit Tablet 6,000 UNIT PO DAILY (Reported) Cyanocobalamin (Vitamin B-12) (Vitamin B-12) 1,000 Mcg Tablet 1,000 MCG PO DAILY (Reported) Metoprolol Tartrate (Metoprolol Tartrate) 25 Mg Tablet 25 MG PO BID (Reported) Pantoprazole DR (Pantoprazole DR) 40 Mg Tablet.dr 40 MG PO BIDAC Prescribed by: ROGER ISSA DO Sucralfate (Sucralfate) 1 Gm/10 Ml Oral.susp 1,000 MG PO TIDAC Prescribed by: ROGER ISSA DO Tamoxifen Citrate (Tamoxifen Citrate) 20 Mg Tablet 20 MG PO DAILY (Reported) Turmeric Root Extract (Turmeric) 500 Mg Capsule 500 MG PO DAILY (Reported) As needed Docusate Calcium (Stool Softener) 240 Mg Capsule 240 MG PO BID PRN PRN For Constipation (Reported) Nitroglycerin SL (Nitroglycerin SL) 0.4 Mg Tab.subl 0.4 MG SL Q5MIN PRN PRN For Chest Pain (Reported) Additional med instructions We are continuing your sucralfate to take at home 4 times per day for 2 weeks until you see GI. He will also be taking pantoprazole 40 mg twice daily for your ulcers. You can resume taking your regularly prescribed medications as except for aspirin and ibuprofen. Please stay away from any NSAIDs or blood thinners. Followup Plan Disposition: Home Follow-up plan Follow-up with primary care physician in one to 2 weeks, follow-up with GI in 1- 2 weeks, repeat upper endoscopy in 2-3 months. Discharge Diet: Heart Healthy Discharge Activity: Limited until seen by PCP Patient Instructions Please follow-up with your primary care provider in 1-2 weeks. The GI clinic would also like to see you in one to 2 weeks. The GI clinic would also like to perform another upper endoscopy to evaluate the healing of your ulcers in 2-3 months. Please be sure to stay away from medications that are known to aggravate ulcers and constantly need such as naproxen, ibuprofen, aspirin. He started to have dark or tarry stools again, have shortness of breath, dizziness , or chest pain seek medical attention. Follow-up Provider: Odell Baez MD Follow-up with PCP in: 1 week Provider: Jean Mulligan MD Follow-up in: 2 weeks Time spent Greater than 35 minutes Attending Statement The patient was seen and examined together with Dr. Issa on 05/11/17 and I have added additional information to the note above. Roger Issa DO May 11, 2017 17:41 Yasmin Null DO May 11, 2017 18:23
--- NOTE | 2017-05-13 14:28 | PATH ---
SURGICAL PATHOLOGY Attending Physician:Jean Mulligan MD CASE STATUS: Signed Out PATIENT NAME: LAQUITA DUMONT PID: [id number] : 1945 DATE COLLECTED:05/09/2017 00:00 SPECIMEN: 1: Esophagus, Biopsy 2: Gastric, Biopsy 3: Stomach, Antrum, Biopsy CLINICAL HISTORY: HEMATEMESIS, SCHATZKI'S RING, DUODENAL ULCERS 1). DISTAL ESOPHAGUS BIOPSY 2). GASTRIC BODY BIOPSY, RULE OUT H.PYLORI 3). ANTRAL BIOPSY, RULE OUT H.PYLORI FINAL DIAGNOSIS: 1. Distal esophagus: Hyperplastic squamous mucosa with mild active esophagitis. Negative for Baird's metaplastic epithelium / intestinal metaplasia. No well-preserved glandular elements identified for evaluation. Negative for fungal elements identified by Alcian blue pH2.5 / PAS stain. Negative for dysplasia and malignancy. 2. Gastric Body Biopsy: Portions of gastric fundic-type mucosa with mild chronic gastritis. No definite H. pylori organisms identified by H&E stain or by immunohistochemistry studies. Negative for intestinal metaplasia, dysplasia, and malignancy. 3. Antral Biopsy: Portions of gastric antral-type mucosa with chronic gastritis. No definite H. pylori organisms identified by H&E stain or by immunohistochemistry studies. Negative for intestinal metaplasia, dysplasia, and malignancy. ICD10: K29.7 NOTE: 2. Gastric biopsy and 3. Antral biopsy: - Negative for Helicobacter pylori by immunohistochemical stains. Parts 2. and 3. Immunohistochemical stains are performed to further evaluate for the presence of Helicobacter organisms. The patient tissue is stained with monoclonal antibody to Helicobacter pylori (SP48). Positive and negative controls stain appropriately. Result: The patient tissue shows no staining. Interpretation: The gastric mucosa is negative for Helicobacter pylori by immunohistochemical stains. This test was developed and its performance characteristics determined by [facility]. It has not been cleared or approved by the [place]. [place]. Food and Drug Administration. The FDA has determined that such clearance or approval is not necessary. This test is used for clinical purposes. It should not be regarded as investigational or for research. GROSS DESCRIPTION: The specimen is received in three formalin filled containers labeled with the patient's name. 1). The specimen is labeled "distal esoph" and consists of a 0.2 x 0.2 x 0.2 CM portion of tissue which is entirely submitted in cassette 1A. 2). The specimen is labeled "gastric body" and consists of 2 portions of tissue which aggregate to 0.3 x 0.2 x 0.2 CM. The specimen is entirely submitted in cassette 2A. 3). The specimen is labeled "antral" and consists of 2 portions of tissue which aggregate to 0.3 x 0.3 x 0.2 CM. The specimen is entirely submitted in cassette 3A. 05/11/2017OH ICD-9 CODES: CPT CODES: 1: 58089, 76733 2: 20725, 65476 3: 32517, 53909 Electronically Signed Out Laquita Zapata MD [facility] [address], [place] [address] Technical component performed at [facility], [facility] [address], [place], [address]
== END 2017-05-11 15:55 | disposition home or self-care (01) | DRG 378 ==
LOC: EDBD 14:44 → EDUNIT# 14:44 → SED 14:44 → PCC 19:52
PROVIDERS: ADMIT Hospitalist; ATTEND Neuromusculoskeletal Medicine & OMM
PROC: 3E0G8GC Introduction of Other Therapeutic Substance into Upper GI, Via Natural or Artificial Opening Endoscopic (ICD-10-PCS; 2017-05-09)
PROC: 30233N1 Transfusion of Nonautologous Red Blood Cells into Peripheral Vein, Percutaneous Approach (ICD-10-PCS; 2017-05-09)
PROC: 0DB38ZX Excision of Lower Esophagus, Via Natural or Artificial Opening Endoscopic, Diagnostic (ICD-10-PCS; principal; 2017-05-09 07:00)
PROC: 0DB68ZX Excision of Stomach, Via Natural or Artificial Opening Endoscopic, Diagnostic (ICD-10-PCS; 2017-05-09 07:00)
DX: K26.0 Acute duodenal ulcer with hemorrhage (principal); D62 Acute posthemorrhagic anemia; E87.0 Hyperosmolality and hypernatremia; G35 Multiple sclerosis; I10 Essential (primary) hypertension; E78.5 Hyperlipidemia, unspecified; Z66 Do not resuscitate; T39.395A Adverse effect of other nonsteroidal anti-inflammatory drugs [NSAID], initial encounter; I25.2 Old myocardial infarction; Z79.82 Long term (current) use of aspirin